=== PATIENT | female | born 1960 | race Caucasian/White ===

== ENCOUNTER 2023-11-20 09:15 | Emergency (ER) | payer OTHER, SELFPAY ==
[2023-11-20 09:18] VITALS: BP 173/91; BMI 23.5
--- NOTE | 2023-11-20 09:26 | ED.CVA ---
Addendum entered and electronically signed by Carlo Murillo DO 11/20/23 11:19:
The patient's blood sugar was slightly low at 68. She states she has had some symptomatic borderline hypoglycemic episodes in the past. She was given juice prior to discharge. Hypoglycemia may have been a contributing factor earlier.
Original Note:
History of Present Illness
General
Chief Complaint: CVA/TIA Symptoms
Time Seen by Provider: 11/20/23 09:26
Onset of Stroke Symptoms
Onset of symptoms known: Yes
Date of onset of symptoms: 11/20/23
Time of onset of symptoms: 07:30
Travel History
Have you had any contact with someone who has COVID-19?: No
Do you have any symptoms of coronavirus? Fever > 100 degrees, chills, cough, shortness of breath, sore throat, loss of taste or smell, muscle aches, or headache?: No
History of Present Illness
History of Present Illness:
HPI: At about 7:30 AM today after the patient finished swimming at your school, she had abrupt onset inability to recall where she was or what her plans were for the day. This lasted for about an hour. She has a history of von Willebrand's type I,
then diagnosed with essential thrombocytosis, then von Willebrand's type II. She does not take any medications. She states that she is at increased risk for bleeding as opposed to increased risk for clotting. She also states she has had an
abnormal white count recently as well.
EXAM:
GENERAL: Well appearing in no distress
HEENT: Moist oral mucosa
CARDIOVASCULAR: No murmurs, normal heart rate, regular rhythm, No chest wall tenderness
PULMONARY: No respiratory distress, breath sounds are clear and equal
ABDOMEN: Soft with no peritoneal signs, no tenderness
NEUROLOGIC: Excellent strength all extremities, no coordination deficits, GCS 15, NIHSS equals 0
PSYCHIATRIC: Appropriate mental status, normal insight and judgement
EXTREMITIES: Nontender, no edema, moves all extremities equally
SKIN: No rash, no lesions
TIME OF INITIAL ENCOUNTER: 9:30 AM
NUMBER AND COMPLEXITY OF PROBLEMS ADDRESSED AT THE ENCOUNTER
� Chronic conditions affecting care: History of von Willebrand's, thrombocytosis (essential thrombocythemia)
� Acute Exacerbation and/or Progression of Chronic Illness: This is an acute problem
� Differential Diagnosis includes: TIA, TGA, CVA, hyponatremia, intracranial hemorrhage
AMOUNT AND/OR COMPLEXITY OF DATA TO BE REVIEWED AND ANALYZED
� I performed an independent evaluation of and my interpretation is:
EKG: Sinus 61, no acute ST abnormality
CT: I personally viewed CT imaging of the brain and see no acute abnormality
X-rays:
Laboratory Studies: White count 22, of note leukocytosis to a lesser degree has been noted in 2017 in 2019, platelet count 1.1 million
Other:
� Review of other/old records: Platelet count since 2011 has been over 1 million; the patient had sigmoidoscopy by Dr. Wheeler in October 2022 that showed no concerning findings grossly but small diverticula noted.
� Clinical information was obtained by an independent historian: I spoke to the at bedside who confirms that she is at her baseline mental status
� Prescriptions/Medications Considered but not given:
� Further testing considered but not performed:
RISK OF COMPLICATIONS AND/OR MORBIDITY OR MORTALITY OF PATIENT MANAGEMENT
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
� Discussion with other providers: At 9:45 AM, I discussed case with Dr. Fournier who agrees with noncontrast CT imaging of the brain and recommends no further studies and no other medications; I also called down to [facility]
to discuss case with with Dr. Gillis. I spoke to Dr. Gillis�he said he will call in hydroxyurea to local pharmacy. I reviewed the CBC today and he states that these numbers are similar to prior numbers that she has had with him in the past.
� Escalation of care including admission/observation vs risk of discharge considered: The patient has history of von Willebrand's and essential thrombocythemia who had onset of memory loss 1 hour ago that is since resolved. CT
imaging to be obtained. The patient is in a sinus rhythm. CT imaging unremarkable. [facility] planning to add hydroxyurea. On reassessment at 10:50 AM, the patient has a neurologic examination. She now tells me that she does not
tolerate hydroxyurea in the past�she will contact Dr. Gillis for further recommendations and I also recommended that she follows up with neurology locally.
Past History
Past History
ED Past Medical History: Other (Von Willebrand's disease, and thrombocytosis)
ED Past Surgical History: None
Social History
Tobacco: Non-smoker
Alcohol: Occasional
Drug: None
Personal: Single
Living: with family
Employment: Employed
Family History
Family History: Other (Atrial fibrillation)
Phy Exam
Physical Exam
Physical Exam:
See HPI
Course
Orders/Labs/Results
Orders:
Orders
11/20/23 09:22
EKG [Electrocardiogram (*1)] Urgent
Reason for Study: TIA/Stroke
11/20/23 09:23
CT Head W/o Iv Contrast Urgent
Comment:
Reason For Exam: TIA symptoms
EKG- Treatment ONCE
11/20/23 09:40
CMP [Comprehensive Metabolic Panel] Urgent
Complete Blood Count/With Diff Urgent
Abnormal Lab Results
11/20/23
09:40
WBC 22.5 H 10^3/uL
(4.8-10.8)
MCHC 32.1 L g/dL
(33.0-37.0)
RDW 16.9 H %
(11.5-14.5)
Plt Count 1117 H 10^3/uL
(130-400)
Abs Immat Gran (auto) 1.0 H 10^3/uL
(0-0.05)
Absolute Neuts (auto) 19.1 H 10^3/uL
(1.4-6.5)
Absolute Monos (auto) 0.8 H 10^3/uL
(0.1-0.6)
Immature Gran % 4.5 H %
(0-0.5)
Neutrophils % 85.2 H %
(42.2-75.2)
Lymphocytes % 6.1 L %
(20.5-51.1)
Potassium 5.3 H mmol/L
(3.5-5.1)
Carbon Dioxide 31 H mmol/L
(22-30)
BUN 18 H mg/dl
(7-17)
Glucose 68 L mg/dl
(70-99)
Calcium 10.3 H mg/dl
(8.4-10.2)
11/20/23 09:40
11/20/23 09:40
Vital Signs
Initial and Last Documented VS:
Initial Vital Signs
Temp Pulse Resp BP Pulse Ox
98.5 F 88 16 173/91 99
11/20/23 09:18 11/20/23 09:18 11/20/23 09:18 11/20/23 09:18 11/20/23 09:18
Last Documented Vital Signs
Temp Pulse Resp BP Pulse Ox
98.5 F 67 16 154/96 97
11/20/23 09:18 11/20/23 09:45 11/20/23 09:45 11/20/23 09:28 11/20/23 09:45
*Critical Care Note
Total Time (30-74mins, 75-104mins- exclusive of procedures): Not Applicable
ED Attending Note
-
Portions of this chart may have been created with voice recognition software.� Occasional wrong word or��sound alike� substitutions may have occurred due to the inherent limitations of voice recognition software.
Discharge Plan
Departure
Patient Disposition: Home (Routine Discharge)
Date of Disposition: 11/20/23
Time of Disposition: 10:49
Patient with high blood pressure during this ER visit?: Yes
Discharge Problem:
Transient global amnesia
Instructions: Transient Ischemic Attack (DC), BLOOD PRESSURE
Prescriptions:
No Action
vitamin B complex 1 TAB tablet
1 tab PO DAILY
albuterol sulfate 1 PUFF HFA aerosol inhaler
1 puff inhalation R Q4HPRN PRN (Reason: sob)
Lactobac 2-Bifido 1-S. therm [VSL#3] 1 EACH capsule
1 cap PO DAILY
cholecalciferol (vitamin D3) 2,000 UNITS tablet
5,000 units PO DAILY
Magnesium Citrate Tablet
240 mg PO DAILY
Prebiotin Fiber Powder
1 sc PO DAILY
Referrals:
Aureliano Fournier MD [Active] - Follow up in 2-3 days
NONE,* [Active] -
Activity Restrictions/Additional Instructions:
Your symptoms could be related to a transient global amnesia event. I discussed with the local neurologist, Dr. Fournier, who had no further recommendations. I also discussed with Dr. Gillis at [facility]�he was going to call in a prescription
for hydroxyurea to your local pharmacy�I recommend that you call him for further discussion. I have also given you the contact information for a local neurologist for consideration of MRI of the brain as an outpatient.
Interventions
Interventions:
*Risk Screen - Suicide Last Done: 11/20/23 09:18
*General Assessment Last Done: 11/20/23 09:37
*Neglect/Abuse Screening Last Done: 11/20/23 09:18
ED- Fall Risk Assessment Last Done: 11/20/23 09:37
*ED COVID-19 Vaccine History Last Done: 11/20/23 09:18
ED- Pulmonary Assessment Last Done: 11/20/23 09:37
ED- Neurological Assessment Last Done: 11/20/23 09:37
ED- Cardiac Assessment Last Done: 11/20/23 09:37
Discharge Date and Time
Print Language: BOLIVIAN
[2023-11-20 09:28] VITALS: BP 154/96
[2023-11-20 09:53] LABS: % Basophils 0.3 % (0-2); % Eosinophils 0.2 % (0-6); % Immature Granulocytes 4.5 % (0-0.5); % Lymphocytes 6.1 % (20.5-51.1); % Monocytes 3.7 % (1.7-9.3); % Neutrophils 85.2 % (42.2-75.2); Absolute Basophils 0.1 10^3/uL (0-0.2); Absolute Eosinophils 0.1 10^3/uL (0-0.7); Absolute Lymphocytes 1.4 10^3/uL (1.2-3.4); Absolute Monocytes 0.8 10^3/uL (0.1-0.6); Absolute Neutrophils 19.1 10^3/uL (1.4-6.5); Hematocrit 42.4 % (37.0-47.0); Hemoglobin 13.6 g/dL (12.0-16.0); Mean Corp Hgb Conc. 32.1 g/dL (33.0-37.0); Mean Corpuscular Hgb 30.8 pg (27.0-31.0); Mean Corpuscular Volume 96.1 fL (81.0-99.0); Mean Platelet Volume 9.2 fL (7.4-10.4); Nucleated Red Blood Cells % 0.3 %; Platelet Count 1117 10^3/uL (130-400); Red Blood Cell Count 4.41 10^6/uL (4.20-5.40); Red Cell Dist. Width 16.9 % (11.5-14.5); White Blood Cell Count 22.5 10^3/uL (4.8-10.8)
[2023-11-20 10:13] LABS: ALT (SGPT) 21 U/L (0-35); AST (SGOT) 32 U/L (14-36); Albumin 4.9 g/dl (3.5-5.0); Alkaline Phosphatase 45 U/L (38-126); Blood Urea Nitrogen 18 mg/dl (7-17); Calcium 10.3 mg/dl (8.4-10.2); Carbon Dioxide 31 mmol/L (22-30); Chloride 103 mmol/L (98-107); Estimated Creatinine Clearance 63 ml/min; Glucose 68 mg/dl (70-99); Potassium 5.3 mmol/L (3.5-5.1); Sodium 140 mmol/L (135-145); Total Bilirubin 0.6 mg/dl (0.2-1.3); Total Protein 7.5 g/dl (6.3-8.2); eGFR > 60.00
[2023-11-20 11:00] VITALS: BP 142/68
[2023-11-20 11:20] VITALS: BP 142/68
--- NOTE | 2023-11-20 11:28 | EDRN ---
Reviewed discharge instructions with patient. Verbalized understanding. Ambulated with steady gait to the lobby.
== END 2023-11-20 11:20 | disposition home or self-care (01) ==
LOC: EMR 09:15
PROVIDERS: Emergency Medicine; EMERGENCY PHYSICIAN Emergency Medicine; FAMILY PHYSICIAN Nurse Practitioner Family
DX: G45.4 Transient global amnesia (principal); D68.01 Von Willebrand disease, type 1; D69.3 Immune thrombocytopenic purpura
CPT/HCPCS: 99284; 70450; 80053; 85025; 93005

== ENCOUNTER → 2023-12-13 12:51 | Outpatient (REF) | payer OTHER, SELFPAY | LOC: MRI 3T 12:51 | PROVIDERS: ATTENDING PHYSICIAN Specialist; FAMILY PHYSICIAN Nurse Practitioner Family | DX: G45.9 Transient cerebral ischemic attack, unspecified (principal) | CPT/HCPCS: 70551 ==

== ENCOUNTER → 2024-01-15 08:57 | Outpatient (REF) | payer OTHER, SELFPAY | LOC: HWRAD 08:57 | PROVIDERS: ATTENDING PHYSICIAN Specialist; FAMILY PHYSICIAN Nurse Practitioner Family | DX: G45.9 Transient cerebral ischemic attack, unspecified (principal) | CPT/HCPCS: 93880 ==

== ENCOUNTER → 2024-04-05 09:10 | Outpatient (REF) | payer OTHER, SELFPAY | LOC: RCS 09:10 | PROVIDERS: ATTENDING PHYSICIAN Internal Medicine Cardiovascular Disease; FAMILY PHYSICIAN Nurse Practitioner Family | DX: R00.2 Palpitations (principal); I34.0 Nonrheumatic mitral (valve) insufficiency | CPT/HCPCS: 93306 ==

== ENCOUNTER 2024-10-20 06:23 | Day surgery (SDC) | payer OTHER, SELFPAY | END 2024-10-20 08:23 | disposition home or self-care (01) | LOC: GI 06:23 | PROVIDERS: ATTENDING PHYSICIAN Internal Medicine; FAMILY PHYSICIAN Nurse Practitioner Family | DX: K64.4 Residual hemorrhoidal skin tags (principal); R15.9 Full incontinence of feces; Z87.19 Personal history of other diseases of the digestive system; Z98.890 Other specified postprocedural states | CPT/HCPCS: 45331; 88305 ==

== ENCOUNTER 2025-01-03 06:24 | Day surgery (SDC) | payer OTHER, SELFPAY | END 2025-01-03 13:18 | disposition home or self-care (01) | LOC: GI 06:24 | PROVIDERS: ATTENDING PHYSICIAN Internal Medicine; FAMILY PHYSICIAN Nurse Practitioner Family | DX: R12 Heartburn (principal); R63.0 Anorexia; K44.9 Diaphragmatic hernia without obstruction or gangrene; K20.90 Esophagitis, unspecified without bleeding | CPT/HCPCS: 43239; 88305 ==

== ENCOUNTER → 2025-01-05 07:44 | Outpatient (REF) | payer OTHER, SELFPAY ==
[2025-01-05 08:54] LABS: Hematocrit 38.9 % (37.0-47.0); Hemoglobin 12.7 g/dL (12.0-16.0); Mean Corp Hgb Conc. 32.6 g/dL (33.0-37.0); Mean Corpuscular Volume 94.9 fL (81.0-99.0); Mean Platelet Volume 9.2 fL (7.4-10.4); Platelet Count 823 10^3/uL (130-400); Red Cell Dist. Width 16.3 % (11.5-14.5); White Blood Cell Count 14.6 10^3/uL (4.8-10.8)
[2025-01-05 09:54] LABS: ALT (SGPT) 16 U/L (0-35); AST (SGOT) 19 U/L (14-36); Albumin 4.5 g/dl (3.5-5.0); Alkaline Phosphatase 38 U/L (38-126); Blood Urea Nitrogen 15 mg/dl (7-17); Calcium 9.3 mg/dl (8.4-10.2); Carbon Dioxide 28 mmol/L (22-30); Chloride 106 mmol/L (98-107); Glucose 81 mg/dl (70-99); Potassium 5.2 mmol/L (3.5-5.1); Sodium 141 mmol/L (135-145); Total Bilirubin 0.6 mg/dl (0.2-1.3); Total Protein 6.9 g/dl (6.3-8.2); eGFR > 60.00
[2025-01-05 10:08] LABS: % Neutrophils 80.1 % (42.2-75.2)
[2025-01-05 10:12] LABS: % Basophils 0.3 % (0-2); % Eosinophils 0.3 % (0-6); % Immature Granulocytes 5.9 % (0-0.5); % Lymphocytes 7.8 % (20.5-51.1); % Monocytes 5.6 % (1.7-9.3); Absolute Basophils 0.1 10^3/uL (0-0.2); Absolute Immature Granulocytes 0.9 10^3/uL (0-0.05); Absolute Lymphocytes 1.1 10^3/uL (1.2-3.4); Absolute Monocytes 0.8 10^3/uL (0.1-0.6); Absolute Neutrophils 11.7 10^3/uL (1.4-6.5); Nucleated Red Blood Cells % 0.2 %
== END ==
LOC: REG 07:44
PROVIDERS: ATTENDING PHYSICIAN Internal Medicine; FAMILY PHYSICIAN Nurse Practitioner Family
DX: R16.1 Splenomegaly, not elsewhere classified (principal); R63.0 Anorexia; R10.13 Epigastric pain; R10.2 Pelvic and perineal pain
CPT/HCPCS: 36415; 80053; 85025

== ENCOUNTER → 2025-01-13 08:44 | Outpatient (REF) | payer OTHER, SELFPAY | LOC: RAD 08:44 | PROVIDERS: ATTENDING PHYSICIAN Internal Medicine; FAMILY PHYSICIAN Nurse Practitioner Family | DX: R16.1 Splenomegaly, not elsewhere classified (principal); R63.0 Anorexia; R10.13 Epigastric pain; R10.2 Pelvic and perineal pain | CPT/HCPCS: 74177; Q9967 ==

== ENCOUNTER 2025-02-19 21:32 | Emergency (ER) | payer OTHER, SELFPAY ==
[2025-02-19 21:41] VITALS: BP 131/81
--- NOTE | 2025-02-19 21:54 | ED.GENMED ---
History of Present Illness
General
Chief Complaint: Skin Surface Trauma
Source: patient
Exam Limitations: none
Time Seen by Provider: 02/19/25 21:51
Nursing documentation reviewed up to this point in time: agreed with
History of Present Illness
History of Present Illness:
65 y/o female with a pmh of essential thrombocytopenia, von willebrand type 1a, htn, who presents to the emergency department today with concerns of a right knee laceration. Patient reports that she was completing a trail run this afternoon when she
tripped and fell forward, scrapping her knee on the trail. She saw EMS on site at the event who cleaned the wound and applied a dressing. The wound would not stop bleeding. 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 Patient carried on with a portion of the race when she started to bleed again and started to bleed through the powder. She denies any other injuries. She did not hit her head or loose
consciousness.
Past History
Past History
ED Past Medical History: Other (Von Willebrand's disease, and thrombocytosis)
ED Past Surgical History: None
Social History
Tobacco: Non-smoker
Alcohol: Occasional
Drug: None
Personal: Single
Living: with family
Employment: Employed
Family History
Family History: Other (Atrial fibrillation)
Review of Systems
Review of Systems
All Other Systems: ROS reviewed and negative except as documented in HPI and ROS
Phy Exam
General Physical Exam
General Presentation: well appearing and no apparent distress
General age: appears stated age
General Skin: warm, dry and other (3 cm laceration)
General Habitus: normal
General Mental: alert
General Hydration: appears well hydrated
ENT Exam
ENT Exam: EOMI
Cardiovascular Exam
Cardiovascular Exam: regular rate/rhythm
Pulmonary Exam
Pulmonary Exam: no respiratory distress
Neurological Exam
Neurological Exam: CN II-XII intact and no sensory deficits
Musculoskeletal Exam
Musculoskeletal Exam: full ROM and no edema
Skin Exam
Skin Exam: normal color and laceration
Psychiatric Exam
Psychiatric Exam: normal mood/affect
Course
Orders/Labs/Results
Orders:
Orders
02/19/25 22:39
Tetanus/Diphth/Acelpertussis [Adacel] 0.5 ml IM .ONCE ONE
Vital Signs
Initial and Last Documented VS:
Initial Vital Signs
Temp Pulse Resp BP Pulse Ox
98.4 F 76 20 131/81 98
02/19/25 21:41 02/19/25 21:41 02/19/25 21:41 02/19/25 21:41 02/19/25 21:41
Last Documented Vital Signs
Temp Pulse Resp BP Pulse Ox
98.4 F 76 20 131/81 98
02/19/25 21:41 02/19/25 21:41 02/19/25 21:41 02/19/25 21:41 02/20/25 05:12
Procedures
Laceration Closure
Right Knee:
Status of Wound: clean
Size of Wound in cm: 3
Anesthesia: 1% Lidocaine with epi
Wound exploration: explored to base- no FB and foreign body removed (removed clotting powder)
Skin Closure Material: 4-0 prolene
Number of sutures: 5
MDM/Problems Addressed
Differential Diagnosis Includes:
ddx include laceration, abrasion, neurovascular injury, contusion
MDM/Problems Addressed:
65 y/o female with a pmh of essential thrombocytopenia, von willebrand type 1a, htn, who presents to the emergency department today with concerns of a right knee laceration. She originally was not going to seek care as her bleeding was well
controlled with clotting powder. On my exam, patient is well appearing, in no acute distress. She has full ROM of her bilateral lower extremities normal gait sensation intact. There is a moderate amount of sand like material in the wound reflective
of the clotting powder. Wound requires sutures. Reviewed case with ED attending. I extensively irrigated the wound to remove as much clotting powder as possible and placed sutures. Considering nature of wound will start on prophylactic abx.
Discussed limitijng activties and ROM of knee as it is neer joint line. Patient stable for discharge
*Pulse Oximetry
SaO2: 98
Oxygen Mode of Delivery: Room air
Patient hypoxic: no
*Critical Care Note
Total Time (30-74mins, 75-104mins- exclusive of procedures): Not Applicable
ED Attending Note
-
Portions of this chart may have been created with voice recognition software.� Occasional wrong word or��sound alike� substitutions may have occurred due to the inherent limitations of voice recognition software.
Discharge Plan
Departure
Patient Disposition: Home (Routine Discharge)
Date of Disposition: 02/19/25
Time of Disposition: 22:59
Patient with high blood pressure during this ER visit?: Yes
Condition: Good
Discharge Problem:
Laceration of knee
Instructions: Wound Care (DC), Laceration Repair With Stitches (DC), BLOOD PRESSURE
Prescriptions:
New
cephalexin 500 mg capsule
500 mg PO TID 5 Days Qty: 15 0RF
No Action
vitamin B complex 1 TAB tablet
1 tab PO DAILY
albuterol sulfate 1 PUFF HFA aerosol inhaler
1 puff inhalation R Q4HPRN PRN (Reason: sob)
Lactobac 2-Bifido 1-S. therm [VSL#3] 1 EACH capsule
1 cap PO DAILY
cholecalciferol (vitamin D3) 2,000 UNITS tablet
5,000 units PO DAILY
Magnesium Citrate Tablet
240 mg PO DAILY
Prebiotin Fiber Powder
1 sc PO DAILY
Referrals:
Germaine Salas CRNP [Family Provider, Family Practice]
Activity Restrictions/Additional Instructions:
Please have your stitches removed in 7 to 10 days.
Please keep the wound dry for 24 hours. After 24 hours, you can change dressing with nonadherent pad. You can clean the wound with warm water and mild soap. Please do not apply hydrogen peroxide or alcohol over the wound. Please refrain from
running.
Keflex has been sent to your pharmacy. Please take 1 tablet 3 times daily for 5 days.
Please return to emergency department should you develop increasing pain, swelling, purulent drainage from the wound, surrounding redness, fevers or chills, inability ambulate, or any other signs or symptoms worrisome to you.
Interventions
Interventions:
*Risk Screen - Suicide Last Done: 02/19/25 21:41
*General Assessment Last Done: 02/19/25 21:41
*Neglect/Abuse Screening Last Done: 02/19/25 21:41
*ED- Fall Risk Assessment Last Done: 02/19/25 21:41
*ED COVID-19 Vaccine History Last Done: 02/19/25 21:41
*Nursing Disposition Last Done: 02/19/25 23:16
ED-Skin Assessment Last Done: 02/19/25 23:16
Discharge Date and Time
Discharge Date/Time: 02/19/25 23:18
Print Language: UGANDAN
[2025-02-19] MEDS: ADACEL 0.5 ML IM (23:02)
== END 2025-02-19 23:18 | disposition home or self-care (01) ==
LOC: EMR 21:32
PROVIDERS: EMERGENCY PHYSICIAN Emergency Medicine; FAMILY PHYSICIAN Nurse Practitioner Family
DX: S81.011A Laceration without foreign body, right knee, initial encounter (principal); W01.0XXA Fall on same level from slipping, tripping and stumbling without subsequent striking against object, initial encounter; D68.01 Von Willebrand disease, type 1; I10 Essential (primary) hypertension; D69.3 Immune thrombocytopenic purpura; Z23 Encounter for immunization
CPT/HCPCS: 90471; 12002; 99282; 90715

== ENCOUNTER 2025-02-22 08:50 | Inpatient (IN) | payer OTHER, SELFPAY ==
[2025-02-21 23:35] VITALS: BP 171/87
[2025-02-22] VITALS (7 sets, daily range): BP systolic 117–143; BP diastolic 58–89; BMI 26.0
[2025-02-22 00:47] LABS: ALT (SGPT) 15 U/L (0-35); AST (SGOT) 20 U/L (14-36); Albumin 4.4 g/dl (3.5-5.0); Alkaline Phosphatase 56 U/L (38-126); Blood Urea Nitrogen 13 mg/dl (7-17); Calcium 9.2 mg/dl (8.4-10.2); Carbon Dioxide 28 mmol/L (22-30); Chloride 103 mmol/L (98-107); Glucose 108 mg/dl (70-99); Potassium 4.4 mmol/L (3.5-5.1); Sodium 138 mmol/L (135-145); Total Protein 6.9 g/dl (6.3-8.2); eGFR > 60.00
[2025-02-22 00:58] LABS: Hematocrit 38.2 % (37.0-47.0); Hemoglobin 12.5 g/dL (12.0-16.0); Mean Corp Hgb Conc. 32.7 g/dL (33.0-37.0); Mean Corpuscular Volume 93.2 fL (81.0-99.0); Platelet Count 891 10^3/uL (130-400); Red Cell Dist. Width 16.6 % (11.5-14.5)
[2025-02-22] MEDS: TYLENOL 650 MG PO ×4 (02:04→20:32)
[2025-02-22] MEDS: ZOFRAN ODT (ORALLY DISINTEGRATING) 4 MG PO (02:05)
[2025-02-22 02:25] LABS: Nucleated Red Blood Cells % 0.1 %
--- NOTE | 2025-02-22 04:34 | ED.GENMED ---
History of Present Illness
General
Chief Complaint: Skin Problem
Source: patient, spouse and previous hospital records (ED visit from 3 days ago, traumatic wound right anterior knee, suture repair, placed on Keflex.)
Exam Limitations: none
Time Seen by Provider: 02/22/25 04:02
Nursing documentation reviewed up to this point in time: agreed with
History of Present Illness
History of Present Illness:
The patient is a 65-year-old female who presented initially three days ago with an injury to her right anterior knee. Wound was thoroughly irrigated, suture repaired and placed on Keflex. After the initial visit, the patient traveled to a [facility] the following day, during which she began experiencing fever despite administration of acetaminophen. She also noted redness and swelling right anterior knee leading to a subsequent visit to the emergency department in the [place]
area.
At the emergency department, laboratory work revealed leukocytosis with a white blood cell count of 22,000/�L. Imaging, including an X-ray of the knee which was reported unremarkable and an ultrasound, verified superficial cellulitis and no further
complications. The patient was switched from cephalexin to doxycycline and Augmentin. Despite new antibiotics, the patient continues to experience fever. She also notes increased redness now extending to the mid thigh and continues with
intermittent fevers.
The patient cannot take ibuprofen but has been consistently using acetaminophen every five hours. She mentions experiencing discomfort and pain in her hip, although the source of pain postures as unclear. The wound showed minimal oozing, and she
used crutches to offload the leg. Initial treatment included the application of clot powder, which may have aggravated wound conditions.
Past History
Past History
ED Past Medical History: Other (Von Willebrand's disease, and thrombocytosis)
ED Past Surgical History: None
Social History
Tobacco: Non-smoker
Alcohol: Occasional
Drug: None
Personal: Single
Living: with family
Employment: Employed
Family History
Family History: Other (Atrial fibrillation)
Phy Exam
Physical Exam
Physical Exam:
GENERAL: Alert , in no apparent distress. Mild low-grade fever noted initially. Has resolved after dose of Tylenol.
EYE: anicteric
NECK: Supple, nontender, no meningismus, no significant adenopathy.
ENT: posterior pharynx is clear, oral mucosa is moist. TM clear b/l, nares patent.
CARDIAC: Regular rate and rhythm. no murmur.
LUNGS: Clear breath sounds bilaterally, no acute respiratory distress, no wheezes/rales/rhonchi
ABDOMEN: Soft, nondistended, without focal tenderness, no r/g, no cvat. normoactive BS.
NEUROLOGICAL: Alert and oriented x3, no focal neuro deficits.
SKIN: Warm and dry, normal color. Right anterior knee has a horizontal sutured laceration with moderate local erythema mild bogginess anterior knee with mild local tenderness to palpation. No drainage. Erythema extends to the anterior medial
thigh approximately mid aspect as well as minimally to the anterior proximal lower leg region. There is minimal right groin adenopathy. No evidence of lymphangitis. No palpable joint effusion of the right knee. Mildly restricted flexion of the
right knee without significant pain with range of motion.
MUSCULOSKELETAL: No C/C/E. peripheral pulses are full and equal b/l.
PSYCH: Normal and appropriate interaction.
Sepsis
Sepsis Screening
Sepsis Assessment: Sepsis Ruled Out
Sepsis Screen
Sepsis Screen: Sepsis Ruled Out
Date: 02/24/25
Time: 05:47
Course
Orders/Labs/Results
Orders:
Orders
02/21/25 23:41
Complete Blood Count/With Diff Urgent
Comprehensive Metabolic Panel Urgent
Lactic Acid Urgent
Blood Culture Urgent
REAGAN Source: Blood/Venous
Specimen Description:
02/22/25 02:01
Acetaminophen [Tylenol] 650 mg .ROUTE .STK-MED ONE
Ondansetron Orally Disint [Zofran Odt (Orally Disintegrating)] 4 mg .ROUTE .STK-MED ONE
02/22/25 02:03
Acetaminophen [Tylenol] 650 mg PO NOW STA
02/22/25 02:05
Ondansetron Orally Disint [Zofran Odt (Orally Disintegrating)] 4 mg PO NOW STA
02/22/25 04:31
US Non Vasc LOWER Ext RT Urgent
Reason For Exam: R ant knee erythema, swelling, fever
02/22/25 Breakfast
Regular
At Your Request: Full Participation
02/22/25 06:09
Vancomycin [Vancocin] 1,500 mg 0.9% Sodium Chloride 500 ml [Nss] 500 ml IV NOW
02/22/25 07:09
Admit/Transfer Patient As Directed
Co-Sign Provider:
Level of Care: Inpatient admission
Assign to:: Telemetry
Physician / Group: Shane
Diagnosis: R Knee Cellulitis / Bursitis
Reason for Telemetry: Arrhythmia
Date to Stop Telemetry: 02/25/25
Time to Stop Telemetry: 11:00
Reason for Hospitalization: R Knee Cellulitis / Bursitis
Expected length of stay greater than two midnights?: Yes
ELOS- Estimated Length of Stay in days: 2
I certify the patient meets the requirements for IP care: Yes
PRN Pain Medication Management As Directed
May give lesser potent ordered pain med per pt: Yes
preference::
Protocol:: Medication orders for pain may be administered in a
manner that supports deferring to patient preference
when the pt is:
- Requesting an ordered lesser potent pain medication.
Least to most potent pain medications are defined
as: acetaminophen < NSAID < tramadol < opioids
(morphine, oxycodone, hydromorphone).
- Requesting a lesser dose of the same medication IF
ORDERED.
- Requesting a less intrusive route of administration
if both routes are prescribed by the provider (PO <
IV).
02/22/25 07:10
Code Status As Directed
Resuscitation Status: Full Code
02/22/25 07:42
Acetaminophen [Tylenol] 650 mg PO Q4HPRN PRN
HYDROmorphone [Dilaudid] 0.5 mg IV Q4HPRN PRN
02/22/25 07:42
ORTHOPEDIC CONSULT Routine
Consulting Provider: Gerard Yin
Was physician already notified: Yes
Reason for consult: R Knee Bursitis / Cellulitis
Activity As Directed
Activity Level: Ambulate
With Assistance
I/O [Intake/ Output] As Directed
Frequency: Per unit guidelines
Pneumatic Compression Sleeves As Directed
Type: Knee high
Vital Signs As Directed
Frequency: Per unit guidelines
Weight As Directed
Frequency: Daily
DX Deep Vein Thrombosis Video Routine
02/22/25 08:00
Flecainide [Tambocor] 50 mg PO DAILY
Losartan [Cozaar] 75 mg PO DAILY
02/23/25 08:47
Basic Metabolic Panel IN AM
Complete Blood Count/No Diff IN AM
02/25/25 11:00
DC Protocol for Telemetry ONCE
Abnormal Lab Results
02/22/25
00:06
WBC 22.5 H 10^3/uL
(4.8-10.8)
RBC 4.10 L 10^6/uL
(4.20-5.40)
MCHC 32.7 L g/dL
(33.0-37.0)
RDW 16.6 H %
(11.5-14.5)
Plt Count 891 H 10^3/uL
(130-400)
Abs Immat Gran (auto) 0.3 H 10^3/uL
(0-0.05)
Absolute Neuts (auto) 20.1 H 10^3/uL
(1.4-6.5)
Absolute Monos (auto) 0.9 H 10^3/uL
(0.1-0.6)
Immature Gran % 1.4 H %
(0-0.5)
Neutrophils % 89.3 H %
(42.2-75.2)
Lymphocytes % 5.1 L %
(20.5-51.1)
Glucose 108 H mg/dl
(70-99)
02/22/25 00:06
02/22/25 00:06
Vital Signs
Initial and Last Documented VS:
Initial Vital Signs
Temp Pulse Resp BP Pulse Ox
99.1 F 80 20 171/87 99
02/21/25 23:35 02/21/25 23:35 02/21/25 23:35 02/21/25 23:35 02/21/25 23:35
Last Documented Vital Signs
Temp Pulse Resp BP Pulse Ox
98.6 F 69 16 128/75 97
02/24/25 03:00 02/24/25 03:00 02/24/25 03:00 02/24/25 03:00 02/24/25 03:00
MDM/Problems Addressed
Differential Diagnosis Includes:
The Differential Diagnosis includes, in no particular order and is not limited to:
1. Superficial cellulitis
2. Deep vein thrombosis
3. Septic arthritis
4. Osteomyelitis
5. Drug reaction
6. Hypersensitivity vasculitis
7. Necrotizing fasciitis
8. Viral infection
9. Thrombophlebitis
10. Bursitis
PLAN
Progressive cellulitis despite oral antibiotics.
1. Initiate intravenous antibiotic therapy.
2. Repeat ultrasound to assess for any underlying abscess or complications.
3. Consider removing stitches if warranted by ultrasound findings.
4. Monitor vital signs and reassess the need for orthopedic or wound consultations.
*Radiology
Radiology exam reviewed: radiology read reviewed
*Pulse Oximetry
SaO2: 97
Oxygen Mode of Delivery: Room air
Patient hypoxic: no
*Critical Care Note
Total Time (30-74mins, 75-104mins- exclusive of procedures): Not Applicable
Update Note
Update Note:
Labs reveal elevated white blood cell count of 22.5. Patient reports similar white blood cell count elevation at [place] ED. Markedly elevated platelets 891, similar to previous. Patient has known thrombocytosis.
Lactic acid is normal.
3 sutures removed from wound right anterior knee.
No drainage nor dehiscence noted. Wound remains well-approximated.
Awaiting ultrasound result.
IV vancomycin ordered.
Will admit to hospitalist service.
ED Attending Note
-
Portions of this chart may have been created with voice recognition software.� Occasional wrong word or��sound alike� substitutions may have occurred due to the inherent limitations of voice recognition software.
Discharge Plan
Departure
Patient Disposition: Admit
Date of Disposition: 02/22/25
Time of Disposition: 06:01
Admit to doctor: Binh
Presentation/result/management discussed w/ accepting MD/DO: Hospitalist
Condition: Fair
Discharge Problem:
Cellulitis of knee, right
Interventions
Interventions:
*Risk Screen - Suicide Last Done: 02/21/25 23:35
*General Assessment Last Done: 02/22/25 04:43
*Neglect/Abuse Screening Last Done: 02/22/25 04:43
*ED- Fall Risk Assessment Last Done: 02/22/25 04:43
*ED COVID-19 Vaccine History Last Done: 02/22/25 04:43
*Nursing Disposition Last Done: 02/22/25 15:05
ED-Skin Assessment Last Done: 02/22/25 04:43
Discharge Date and Time
Discharge Date/Time: 02/22/25 15:06
[2025-02-22] MEDS: VANCOCIN 530 MG IV (06:26)
--- NOTE | 2025-02-22 07:16 | HPS.HSE ---
Family Physician
-
Family Physician: SAMSON Dwyer
Chief Complaint
-
R Knee Pain, Swelling, Redness
History of Present Illness
Patient is a 65y F with PMH significant for von Willebrands Disease, essential thrombocytosis, atrial tachycardia and hypertension who presents to ED complaining of R knee pain, swelling and redness. Patient was running a race on 02/19 when she
tripped and fell - suffering a laceration to the R knee which she describes as a 'flap'. She applied some coagulant powder to the area with good result and continued the race. Following the race she presented to the ED here for evaluation. The
wound was cleaned and closed with 5 sutures. Patient was discharged to home at that time on prophylactic cephalexin.
24 hours later, patient began to have intermittent fevers and noted significant increase in pain and redness of the knee. She had pain with walking / weight bearing.
She was seen at an ED in [facility] on Friday and had x-rays and US which were reportedly normal. She received a dose of IV abx and was discharged on Augmentin / Doxycycline instead of the cephalexin.
Patient presented at a conference on Friday and then drove back to [place] and directly to the ED thereafter. She notes severe pain with standing / weight bearing. Intermittent fevers / sweats.
No N/V. No numbness / weakness in the legs.
Patient denies any discharge from the wound.
Medical History
Past Medical History
Past Medical History: Reports Other
Additional Past Medical History:
von Willebrands Disease
Essential Thrombocytosis
Asthma
GERD / Hiatal Hernia
Atrial Tachycardia
Past Surgical History: Reports Other
Additional Past Surgical History:
[facility] Biopsy
Hemorrhoidectomy
Social History
Tobacco: Non-smoker
Alcohol: Occasional
Drug: None
Family History
Family History: Not pertinent
Allergies / Home Medications
Allergies reflects when Allergies were last updated in [employer].
Home Medications with original date entered in [facility]
Allergy/Medication List:
Allergies
Allergy/AdvReac Type Severity Reaction Status Date / Time
Sulfa (Sulfonamide Allergy Unknown Verified 02/21/25 23:34
Antibiotics)
Home Medications
Lactobac no.2-Bifidobac no.1-S. thermo 112.5 billion cell capsule (VSL#3) 1 cap PO DAILY 10/21/16
Magnesium Citrate 240 mg PO DAILY 10/21/16
Prebiotin Fiber 1 sc PO DAILY 10/21/16
albuterol sulfate 90 mcg/actuation aerosol inhaler 1 puff inhalation R Q4HPRN PRN sob 10/21/16
cholecalciferol (vitamin D3) 50 mcg (2,000 unit) tablet 5,000 units PO DAILY 10/21/16
vitamin B complex 1 tab PO DAILY 10/21/16
flecainide 50 mg tablet 50 mg PO DAILY 02/22/25
losartan 50 mg tablet 75 mg PO DAILY 02/22/25
Review of Systems
-
History Source: Patient
A 12 point ROS was completed and negative except as noted: Yes
Constitutional: Reports Fever, Fatigue and Chills
EENT: Denies Sore Throat
Respiratory: Denies Cough or Trouble Breathing
Cardiac: Denies Chest Pain or Palpitations
Abdomen/GI: Denies Abdominal Pain, Nausea, Vomiting or Diarrhea
: Denies Dysuria
Musculoskeletal: Reports Joint Pain, Joint Swelling and Edema
Skin: Reports Other (Erythema R knee)
Neurological: Denies Dizzy or Headache
Physical Exam
Vital Signs
Vital Signs
Temp Pulse Resp BP Pulse Ox
99.9 F 73 18 131/80 97
02/22/25 01:57 02/22/25 04:50 02/22/25 04:50 02/22/25 04:50 02/22/25 04:50
Physical Exam
General: Other (65y F in mild distress due to knee pain.)
HEENT: Moist mucous membranes and PERRLA
Respiratory: Clear; No Wheezes, Rales or Rhonchi
Cardiac: S1/S2 and Regular Rhythm
GI: Soft and Non Tender
Musculoskeletal: Other (R knee with surrounding edema / induration and erythema extending into lateral thigh and lower leg. Horiztonal suture line with small amount of purulent appearing discharge from medial aspect. Boggy / fluctuance around
laceration.)
Neuro: AO x 3
Laboratory Results
-
02/22/25 00:06
02/22/25 00:06
Laboratory Results
Lactic Acid 0.8 mmol/L (0.7-2.0) 02/22/25 00:06
Total Bilirubin 0.9 mg/dl (0.2-1.3) 02/22/25 00:06
AST 20 U/L (14-36) 02/22/25 00:06
ALT 15 U/L (0-35) 02/22/25 00:06
Alkaline Phosphatase 56 U/L (38-126) 02/22/25 00:06
Impression/Plan
-
A/P: Patient is a 65y F with PMH significant for vWD, ET and hypertension who presents to ED complaining of pain, redness and swelling of the R knee 3 days s/p laceration and repair.
Right Knee Cellulitis / Abscess
Questionable Septic Bursitis v Abscess
- Admit for further evaluation and treatment.
- Some suture material removed by ED staff - scant purulent drainage from medial aspect of laceration.
- Significant surrounding edema / erythema and tenderness.
- ? underlying collection / abscess v septic bursitis.
- US done and report pending re: collection.
- X-rays at [facility] reportedly unremarkable. Consider repeat imaging if needed.
- Ortho evaluation for additional recommendations / possible local drainage or aspiration.
- Culture data from any aspirate or I&D would be beneficial.
- Continue IV Vanco for now pending culture data.
- Supportive care / pain control.
- Follow fever curve and monitor for clinical improvement.
Benign Hypertension
- Stable. Continue losartan.
Atrial Tachycardia.
- Stable. Maintained on flecainide.
vWD
Essential Thrombocytosis
- Stable. Platelet count at baseline.
- WBC typically around 14k per patient - elevated today (22) likely due to acute infection.
- Monitor for any abnormal bleeding, etc.
DVT Prophylaxis: SCDs
Code Status: Full
--- NOTE | 2025-02-22 09:42 | W.PN.HOSP.TC ---
Today's Communication/Plan
-
Continue antibiotics pending orthopedic evaluation
Assessment / Plan
Assessment / Plan
Impression
Patient is a 65y F with PMH significant for vWD, ET and hypertension who presents to ED complaining of pain, redness and swelling of the R knee 3 days s/p laceration and repair.
Right knee area cellulitis with concern for septic bursitis/abscess
Conditions prior to admission:
Essential hypertension
Atrial tachycardia.
Von Willebrand disease type II.
Essential thrombocytosis.
Plan:
Right knee cellulitis with concern for septic bursitis/abscess.
Exam with significant erythema and induration around the knee area extending approximately and distally. Sutured wound with expressed purulent discharge.
Patient reports fever and chills prior to admission while on oral antibiotics
WBC 22.5k
Ultrasound: There is a 4.6 x 1.4 x 4.2 cm mildly heterogeneous fluid collection in the subcutaneous soft tissues which may represent hematoma, possible abscess or a combination.
X-rays at [facility] reportedly unremarkable.
Wound cultures pending
Blood cultures pending
Orthopedic consult with consideration of wound washout
Initiated on vancomycin
Essential hypertension
Continue losartan
Atrial tachycardia
Telemetry monitoring
Continue preadmission flecainide
Von Willebrand disease type II.
Essential thrombocytosis.
Patient reports no major bleeding with endoscopic procedures involving biopsy such as endoscopy and colonoscopy
Noted with platelet count of 891.
Will ask hematology for assistance. Consider pretreatment with DDAVP or TXA if required. Less likely will require von Willebrand's factor given expected minor procedure.
DVT prophylaxis: SCD
CODE STATUS: Full code
Anticipated Discharge: > 48 hours
Subjective/Interval History
-
Date of Service: February 22, 2025
Objective Data
-
Labs:
Laboratory Results
02/22/25
00:06
WBC 22.5 H
Hgb 12.5
Hct 38.2
Plt Count 891 H
Sodium 138
Potassium 4.4
Chloride 103
Carbon Dioxide 28
BUN 13
Creatinine 0.8
Glucose 108 H
Calcium 9.2
Total Bilirubin 0.9
AST 20
ALT 15
Alkaline Phosphatase 56
Vital Signs:
Vital Signs
Temp Pulse Resp BP Pulse Ox
98.6 F 79 18 143/76 97
02/22/25 08:00 02/22/25 08:00 02/22/25 08:00 02/22/25 08:00 02/22/25 08:00
Physical Exam
-
General: Well Developed and No Apparent Distress
HEENT: Normocephalic, Atraumatic and Moist Mucous Membranes
Respiratory: Clear to Auscultation
Cardiac: Regular Rhythm and S1/S2; Negative Murmur, Rub or Gallop
GI: Soft, Nontender, Nondistended and Normal Bowel Sounds; Negative Organomegaly
Rectal: Deferred by Provider
Musculoskeletal: No Clubbing, No Cyanosis, No Edema and Other (Right knee with sutured wound, purulent content expressed. Erythema and induration spreading proximally and distally. Decreased range of motion's.)
Skin: Negative Rash
Neuro: Nonfocal/Grossly Intact
--- NOTE | 2025-02-22 11:19 | CON.ORTHO ---
Consultation
-
Date/Time Consultation Performed: 02/22/2025 1110 AM
Consultation - Orthopedics
History
65-year-old female past medical history significant for von Willebrand's disease atrial tachycardia presented to emergency department complaints of right knee pain and swelling and redness. Ultrasound was performed that showed soft tissue
collection. She was admitted to the hospitalist service. Orthopedics was consulted for further evaluation and treatment. Patient reports that she was running a trail race on 02/19 when she tripped and fell causing a laceration to her right knee.
She presented to emergency department where the wound was cleaned and closed with sutures. She subsequently developed fevers redness and worsening pain presented to an outside emergency department ultimately again to the [place] emergency
department today. She reports that she is quite active and does ultramarathons. 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 She localizes pain to the anterior aspect of the right knee. Does admit to fevers. Limited weightbearing. Admits to
limited range of motion
Allergies / Home Medications
Past medical history: Von Willebrand's disease, essential thrombocytosis, atrial tachycardia, hypertension
Past surgical history: Hemorrhoidectomy, colonoscopy biopsy
Social history: Non-smoker, retired
Family history: Not pertinent
Allergy/AdvReac Type Severity Reaction Status Date / Time
Sulfa (Sulfonamide Allergy Unknown Verified 02/21/25 23:34
Antibiotics)
�Medication �Instructions �Recorded
albuterol sulfate 90 mcg/actuation 1 puff inhalation R Q4HPRN PRN sob 10/21/16
aerosol inhaler
cholecalciferol (vitamin D3) 50 2,000 units PO QPM 10/21/16
mcg (2,000 unit) tablet
magnesium glycinate 120 mg (as 120 mg PO HS 10/21/16
glycinate) capsule
vitamin B complex 1 tab PO QPM 10/21/16
ferrous sulfate 325 mg (65 mg 325 mg PO QPM 02/22/25
iron) tablet
flecainide 50 mg tablet 50 mg PO HS 02/22/25
losartan 50 mg tablet 75 mg PO HS 02/22/25
Vital Signs / Lab Results
Temp Pulse Resp BP Pulse Ox
98.6 F 79 18 143/76 97
02/22/25 08:00 02/22/25 08:00 02/22/25 08:00 02/22/25 08:00 02/22/25 08:00
02/22/25 00:06
02/22/25 00:06
10 point review systems reviewed and negative unless otherwise stated
General: Nontoxic in appearance, pleasant, conversational
Musculoskeletal right lower extremity
There is a transverse laceration with sutures in place over the suprapatellar region of the knee, there is associated erythematous skin changes, no expressible or active drainage or purulence today
Moderate swelling suprapatellar region, there is palpable fluctuance, mild palpable knee effusion
Moderate tenderness palpation area of fluctuance
Limited knee range of motion 0 to about 45 degrees limited by pain
No gross motor or sensory deficits distally
Diagnostic studies
Ultrasound performed right knee that shows a 4.6 x 1.4 x 4.2 cm fluid collection in the subcutaneous soft tissues
Assessment / Plan
65-year-old female status post fall concern for suprapatellar soft tissue abscess associated cellulitis right knee. I did have a long detail discussion with the patient regarding diagnosis and treatment options. She is failed outpatient oral
antibiotics with progressive symptoms ultrasound confirming soft tissue abscess. Low index of suspicion for septic joint given clinical presentation. She does have von Willebrand's disease. Discussed with hospitalist service and planning on
having hematology evaluation prior to OR. Would recommend immobilization with knee immobilizer until OR. N.p.o. at midnight. Plan for I&D tomorrow.
Nonweightbearing right lower extremity
Knee immobilizer to right lower extremity
N.p.o. at midnight
Follow-up MRI of right knee to evaluate for associated soft tissue collection/effusion
Pain control
Antibiotics per primary team
Follow-up hematology consult
Plan 4 OR tomorrow pending or availability medical clearance
--- NOTE | 2025-02-22 11:36 | CON.ID ---
Consultation
-
Date/Time Consultation Requested: February 22, 2025 0954
Date/Time Consultation Performed: February 22, 2025 1140
Requesting Provider: Dr. Jayy Guillen
Performing Provider: Dr. Melanie Nova
Reason for Consultation: Knee bursitis
Chief Complaint / Past History
Chief Complaint
Fever, knee pain and swelling.
History of Present Illness
65-year-old female with history of essential thrombocytosis, von Willebrand's disease who presented to the ER today due to fevers, increase redness, swelling and pain of right knee. On February 19, she was running a race in [place] when she tripped
and fell on the trail. She sustained laceration to her right knee piece of skin avulsion. EMT cleaned the wound. Wound kept bleeding until she applied an anticoagulant powder. She continued on with the race until the wound started bleeding
again. EMT applied anticoagulant powder. She finished the race and then came to the ED the same day. The wound was cleaned and sutured. She was prescribed 5-day course of cephalexin. However the next day on her way to a conference in [place]
ID, she developed fever, right knee swelling and redness. She went to outside ER on February 21. She was discharged on Augmentin and doxycycline. However the erythema extended outside the marked line. She continued to have fevers and chills.
She had difficulty bearing weight. She therefore came to the ER today. This morning purulence noted coming out of the knee suture. The drainage was swabbed for culture. Ultrasound showed a 4.6 x 4.2 cm fluid collection in the subcutaneous
tissue. She is currently on IV vancomycin. Orthopedic is planning to take her to the OR tomorrow.
Past History
Additional Past Medical History:
Hypertension
Von Willebrand disease Type 1 and 2
Essential thrombocytosis
Factor V Leiden mutation
Additional Past Surgical History:
Hemorrhoidectomy
Allergy History:
Sulfa (Sulfonamide Antibiotics) Allergy (Verified 02/21/25 23:34)
Unknown
Medications Reviewed: Yes
Current Antibiotics:
Vancomycin
Social History
Tobacco: Non-Smoker
Alcohol: Occasional
Drug: None
Personal: Single
Family History
Family History: Not Pertinent
Review of Systems
Review of Systems
General: Fever, Chills and Change in Appetite
HEENT: Negative Sinus Problems, Headache or Pharyngitis
Cardiovascular: Negative Chest Pain or Dyspnea
Respiratory: Negative Dyspnea or Cough
Gasteroenterology: Negative Nausea, Vomiting or Diarrhea
Genital / Urological: Negative Dysuria or Flank Pain
Endocrine: Weakness
Neurological: Negative Dizziness
All systems: All other systems were reviewed and were negative
Vital Signs
Temp Pulse Resp BP Pulse Ox
98.4 F 72 22 128/77 97
02/22/25 11:26 02/22/25 11:26 02/22/25 11:26 02/22/25 11:26 02/22/25 11:26
Physical Exam
Physical Exam
Constitutional: No Acute Distress and Comfortable
Head: Other (No maxillary or frontal sinus tenderness)
Eyes: No Conjunctival Hemorrhage and Sclera Anicteric
Cardiovascular: Regular Rate and S1/S2
Pulmonary: Clear
Gastrointestinal: Soft, Non Tender, Non Distended and Normal Bowel Sounds
Genito-Urinary: Negative CVA Tenderness
Extremities: Negative Edema
Musculoskeletal: Other (Right knee: + effusion/edema, bright erythema, warmth, tender. Suture in place with small amount purulent drainage. )
Neurological: AO x 3
Lab / Diagnostic Study Results
02/22/25 00:06
02/22/25 00:06
Abs Immat Gran (auto) 0.3 10^3/uL (0-0.05) H 02/22/25 00:06
Absolute Neuts (auto) 20.1 10^3/uL (1.4-6.5) H 02/22/25 00:06
Absolute Lymphs (auto) 1.2 10^3/uL (1.2-3.4) 02/22/25 00:06
Absolute Monos (auto) 0.9 10^3/uL (0.1-0.6) H 02/22/25 00:06
Absolute Basos (auto) 0.1 10^3/uL (0-0.2) 02/22/25 00:06
Immature Gran % 1.4 % (0-0.5) H 02/22/25 00:06
Neutrophils % 89.3 % (42.2-75.2) H 02/22/25 00:06
Lymphocytes % 5.1 % (20.5-51.1) L 02/22/25 00:06
Monocytes % 3.8 % (1.7-9.3) 02/22/25 00:06
Eosinophils % 0.1 % (0-6) 02/22/25 00:06
Basophils % 0.3 % (0-2) 02/22/25 00:06
Lactic Acid 0.8 mmol/L (0.7-2.0) 02/22/25 00:06
Microbiology Results
Micro:
02/22/25 09:32 Wound Culture - Pending
Knee - Right Gram Stain - Pending
02/22/25 00:06 Blood Culture - Pending
Blood/Venous
02/22/25 R LE US: There is a 4.6 x 1.4 x 4.2 cm mildly heterogeneous fluid collection in the subcutaneous soft tissues which may represent hematoma, possible abscess or a combination.
Assessment / Plan
# Right pre-patella abscess vs septic bursitis
# Recent fall in the aug[place]/trail with right knee skin laceration 02/19
# Leukocytosis
# Hx von-Willebrand disease
- MRI pending
- To OR tomorrow for I+D. please send deep cultures
- Add Zosyn to Vancomycin for polymicrobial coverage due to the nature for her fall.
- Trend temps/wbc.
[2025-02-22] MEDS: ZOSYN 50 IV ×2 (13:38→20:57)
--- NOTE | 2025-02-22 13:43 | CON.ONC ---
Consultation
-
Date Consultation Requested: 02/22/25
Date Consultation Performed: 02/22/25
Requesting Provider: Dr. Jayy Lynn
Performing Provider: Dr. Reynaldo Arenas
Reason for Consultation: Von willibrands disease, upcoming I&D
Impression
Impression
65-year-old male with past medical history of stated von Willebrand's disease, essential thrombocytosis, atrial tachycardia, hypertension presents with possible suprapatellar soft tissue abscess associated cellulitis right knee. Orthopedic plans
for I&D and request hematology consultation for recommendations prior to surgical procedure.
Possible suprapatellar soft tissue abscess associated cellulitis right knee
--Elevated WBC 22.5, afebrile, US concerning for hematoma versus abscess
--MRI pending
--On vancomycin and zosyn per ID
--Knee immobilization and plan for I&D tomorrow
--DDVAP before procedure and TXA given afterwards and continued for 5 days -discussed over the phone with Dr. Myke Gillis [phone], the patient's public relations representative at [facility]. Plan as per their recommendations.
Von Willebrand's disease
Essential thrombocytosis
-- plt 891, not on any half-way therapy as no known complications to elevated platelets
-- Follows with specialist at [facility] per above
-- Okay for surgery per recommendations above discussed with specialist
HTN
--On losartan
Atrial tachycardia
--On flecainide
--On tele
DVT SCD
Full code
Plan
Plan
Okay for surgery in the AM with DDVAP prior to surgery and TXA after and subsequent 5 days
Continue anti-biotics
NPO after midnight
Patient History
History of Present Illness
65-year-old male with past medical history of stated von Willebrand's disease, essential thrombocytosis, atrial tachycardia, hypertension presented to outside ED complaining of right knee pain. The patient was running in the august on 02/19 when she
tripped and fell 7/10th of a mile into her run. She used an anti-coagulant powder to the area and continued to run another 16 miles. She later presented to the [facility] ED for which the wound was cleansed and 5 sutures were placed. She was
discharged home on prophylactic cephalexin. The next day, she started to experience intermittent fevers with increased pain and tenderness in the area. 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
a presentation and went to [facility] ED for evaluation. She had x-rays and ultrasound which were reportedly normal. She received 1 dose of IV antibiotics and was discharged on Augmentin/Doxy instead of cephalexin. She gave her presentation, and
afterwards she came straight back to ED for further evaluation. She endorses fevers, chills, significant pain in right knee especially with weightbearing. She has significant limited range of motion.
In the ED, blood pressure 171/87, heart rate 80, respiratory rate 20, temperature 99.1, 99% on room air. WBC 22.5, platelets 891, absolute neutrophil count 20.1, immature granulocytes 0.3, absolute lymphocytes 1.2, absolute monocytes 0.9.
Creatinine 0.8. Ultrasound of right lower extremity revealed 4.6 x 1.4 x 4.2 cm concerning for hematoma possible abscess. In the ED when suture material was removed, scant purulent discharge was noted. Patient was started on IV vancomycin, pain
control and orthopedics was consulted. Hematology was consulted for further evaluation of von Willebrand's disease and essential thrombocytosis.
Past-Medical/Surgical History
Past medical history: Von Willebrand's disease, essential thrombocytosis, atrial tachycardia, hypertension
Past surgical history: Colon biopsy, hemorrhoidectomy
Patient Medication
�Medication �Instructions �Recorded �Confirmed �Last Taken �Type
albuterol sulfate 90 mcg/actuation 1 puff inhalation R Q4HPRN PRN sob 10/21/16 02/22/25 Unknown History
aerosol inhaler
cholecalciferol (vitamin D3) 50 2,000 units PO QPM 10/21/16 02/22/25 10/20/16 History
mcg (2,000 unit) tablet
magnesium glycinate 120 mg (as 120 mg PO HS 10/21/16 02/22/25 10/20/16 History
glycinate) capsule
vitamin B complex 1 tab PO QPM 10/21/16 02/22/25 10/20/16 History
ferrous sulfate 325 mg (65 mg 325 mg PO QPM 02/22/25 02/22/25 Unknown History
iron) tablet
flecainide 50 mg tablet 50 mg PO HS 02/22/25 02/22/25 Unknown History
losartan 50 mg tablet 75 mg PO HS 02/22/25 02/22/25 Unknown History
Active Medications
Generic Name Dose Route Start Last Admin
Trade Name Freq PRN Reason Stop Dose Admin
Acetaminophen 650 mg 02/22/25 07:42 02/22/25 08:43
Acetaminophen 325 Mg Tablet PO 03/22/25 07:41 650 mg
Q4HPRN PRN Administration
Mild Pain / Temp > 101
Flecainide Acetate 50 mg 02/22/25 22:00
Flecainide 50 Mg Tablet PO 03/22/25 21:59
HS MICHAEL
Hydromorphone HCl 0.5 mg 02/22/25 07:42
Hydromorphone 0.5 Mg/0.5 Ml Syringe IV 03/08/25 07:41
Q4HPRN PRN
Severe Pain
Vancomycin HCl 1 each/ Device 0 mls @ 0 mls/hr 02/22/25 07:42
IV
PER PROTOCOL MICHAEL
As Directed
Piperacillin Sod/Tazobactam Sod 3.375 gram in 50 mls @ 100 mls/hr 02/22/25 14:00 02/22/25 13:38
Zosyn IV 50 mls
Q6H MICHAEL Administration
Losartan Potassium 50 mg 02/22/25 22:00
Losartan 50 Mg Tablet PO 03/22/25 21:59
HS MICHAEL
Losartan Potassium 25 mg 02/22/25 22:00
Losartan 25 Mg Tablet PO 03/22/25 21:59
HS MICHAEL
Review of Systems
-
History Source: Patient
Constitutional: Reports Fever, Fatigue and Night Sweats
EENT: Reports No Symptoms
Respiratory: Reports No Symptoms
Cardiac: Reports No Symptoms
GI: Reports No Symptoms
: Reports No Symptoms
Musculoskeletal: Reports Joint Swelling (Right knee, increased warmth), Muscle Pain and Edema
Neuro: Reports No Symptoms
Physical Exam
-
General: No Apparent Distress and Comfortable
Cardiology: Normal Sinus Rhythm, S1 and S2
Pulmonary: Clear
Musculoskeletal: Other (Right knee significant swelling, erythema, laceration, warmth, limited ROM, significant pain with weight bearing. )
Skin: Warm and Dry
Psych: Calm
Labs
Lab Results
WBC 22.5 10^3/uL (4.8-10.8) H 02/22/25 00:06
RBC 4.10 10^6/uL (4.20-5.40) L 02/22/25 00:06
Hgb 12.5 g/dL (12.0-16.0) 02/22/25 00:06
Hct 38.2 % (37.0-47.0) 02/22/25 00:06
MCV 93.2 fL (81.0-99.0) 02/22/25 00:06
MCH 30.5 pg (27.0-31.0) 02/22/25 00:06
MCHC 32.7 g/dL (33.0-37.0) L 02/22/25 00:06
RDW 16.6 % (11.5-14.5) H 02/22/25 00:06
Plt Count 891 10^3/uL (130-400) H 02/22/25 00:06
MPV 9.5 fL (7.4-10.4) 02/22/25 00:06
Abs Immat Gran (auto) 0.3 10^3/uL (0-0.05) H 02/22/25 00:06
Absolute Neuts (auto) 20.1 10^3/uL (1.4-6.5) H 02/22/25 00:06
Absolute Lymphs (auto) 1.2 10^3/uL (1.2-3.4) 02/22/25 00:06
Absolute Monos (auto) 0.9 10^3/uL (0.1-0.6) H 02/22/25 00:06
Absolute Eos (auto) 0.0 10^3/uL (0-0.7) 02/22/25 00:06
Absolute Basos (auto) 0.1 10^3/uL (0-0.2) 02/22/25 00:06
Immature Gran % 1.4 % (0-0.5) H 02/22/25 00:06
Neutrophils % 89.3 % (42.2-75.2) H 02/22/25 00:06
Lymphocytes % 5.1 % (20.5-51.1) L 02/22/25 00:06
Monocytes % 3.8 % (1.7-9.3) 02/22/25 00:06
Eosinophils % 0.1 % (0-6) 02/22/25 00:06
Basophils % 0.3 % (0-2) 02/22/25 00:06
Creatinine 0.8 mg/dL (0.6-1.0) 02/22/25 00:06
Vital Signs
Vital Signs
Temp Pulse Resp BP Pulse Ox
98.4 F 72 22 128/77 97
02/22/25 11:26 02/22/25 11:26 02/22/25 11:26 02/22/25 11:26 02/22/25 11:26
--- NOTE | 2025-02-22 14:21 | PHA.VAN.IN ---
Assessment
- Assessment
Renal Function: Appears similar to baseline
Concomitant Antimicrobials: piperacillin/tazobactam
AUC Dosing Plan
- Dosing Variables
Dosing Weight (kg): 69
Dosing CrCl (ml/min): 61 - 77
Vd coefficient (L/kg): 0.7
Utilized IBW & Actual Body weight for dosing weight
- Empiric Dosing
Initial / Loading Dose: 1500mg - 02/22 06:26
Maintenance Regimen: Vanc 750mg Q12H starting at 1800
Estimated AUC (mcg*h/mL): 470 - 580
Estimated Peak (mcg*h/mL): 27.8 - 32.1
Estimated Trough (mcg/ml): 13.1 - 17.5
Estimated Half Life (H): 10.1 -12.6
- Monitoring
No levels ordered at this time: consider levels in next few days
Pharmacokinetics Vancomycin I
- -
Patient Age: 65
Patient Sex: Female
Vancomycin Day #: 1
Indication: Skin And Soft Tissue
Requesting Provider: Dr. Purcell
Pertinent Antimicrobial Allergies:
sulfonamide antibiotics - unknown
Height / Weight:
Height 5 ft 4 in
Actual Weight 68.7 kg
- Vital Signs / Lab Results
Temp Pulse Resp BP Pulse Ox
98.4 F 72 22 128/77 97
02/22/25 11:26 02/22/25 11:26 02/22/25 11:26 02/22/25 11:26 02/22/25 11:26
Lab Results - Hematology
02/22/25
00:06
WBC 22.5 H
Lab Results - Chemistry
02/22/25
00:06
BUN 13
Creatinine 0.8
Albumin 4.4
02/22/25
00:06
Lactic Acid 0.8
Microbiology Results
02/22/25 09:32 Gram Stain - Preliminary
Knee - Right
--- NOTE | 2025-02-22 14:45 | CM ---
CM reviewed chart and met with pt bedside in ED. Pt lives with her in 1 story home, [address]. Has outside grab rails.
Independent in ADLs, personal care and ambulation at baseline. Currently in knee immobilizer.
Per pt plan is MRI later today and possible OR tomorrow.
Pt states if she needs home IV antibiotics her daughter who is a nurse can assist her. 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
No hx VN/SNF. Confirms prescription coverage.
PCP: Germaine Salas
Pharmacy: [facility]
Discharge plan: Anticipate home, watch for needs
[2025-02-22] MEDS: VANCOCIN 150 IV (18:14)
[2025-02-22] MEDS: SENOKOT-S 1 TABLET PO (21:19)
[2025-02-22] MEDS: TAMBOCOR 50 MG PO (21:22)
[2025-02-22] MEDS: COZAAR 50 MG PO (21:22)
[2025-02-22] MEDS: COZAAR 25 MG PO (21:23)
[2025-02-23] VITALS (15 sets, daily range): BP systolic 103–139; BP diastolic 60–96; BMI 24.8; BMI 25.3
[2025-02-23] MEDS: ZOSYN 50 IV ×4 (01:13→21:33)
[2025-02-23] MEDS: TYLENOL 650 MG PO ×2 (01:51→11:16)
[2025-02-23] MEDS: VANCOCIN 150 IV ×2 (06:04→20:07)
[2025-02-23] MEDS: SENOKOT-S PO ×2 (08:09→20:10)
[2025-02-23 09:00] LABS: Hematocrit 34.5 % (37.0-47.0); Hemoglobin 11.2 g/dL (12.0-16.0); Mean Corp Hgb Conc. 32.5 g/dL (33.0-37.0); Mean Corpuscular Volume 94.0 fL (81.0-99.0); Platelet Count 678 10^3/uL (130-400); Red Cell Dist. Width 16.6 % (11.5-14.5)
--- NOTE | 2025-02-23 09:01 | W.PN.ONC2 ---
Today's Communication / Plan
-
Proceed with surgery with desmopressin prior and TXA as ordered post procedure as coordinated with her primary hematology team at [facility].
Ordered entered.
Impression
Impression
von Willebrand's disease
essential thrombocytosis
suprapatellar soft tissue abscess associated cellulitis right knee
Plan
Plan
Okay for surgery today with DDVAP prior to surgery and TXA after and subsequent 5 days. Orders entered.
Dr. Arenas spoke yesterday with Dr. Myke Gillis M.D. her mold checker at [facility] - [phone].
Baseline von Willebrand's panel ordered but will not be resulted for a few days but will have the information available if needed for any postsurgical bleeding complications.
> Desmopressin 21 mcg IV x 1 prior to knee surgery, typically 30 to 60 minutes preop.
> Tranexamic acid 700 mg IV TID to begin after surgery on February 23; can be converted to PO when she is taking PO
Subjective/Objective
Chief Complaint
ACS Heme Onc
Subjective
Anxious about upcoming surgery. Reassured patient that we spoke with her mold checker at [facility]. We are following through with the plan as outlined namely desmopressin prior to surgery and then tranexamic acid following surgery.
Vital Signs:
Vital Signs
Temp Pulse Resp BP Pulse Ox
98.2 F 67 18 121/64 98
02/23/25 07:05 02/23/25 07:05 02/23/25 07:05 02/23/25 07:05 02/23/25 07:05
Lab Results:
Laboratory Data
WBC 18.4 10^3/uL (4.8-10.8) H 02/23/25 08:47
Hgb 11.2 g/dL (12.0-16.0) L 02/23/25 08:47
Plt Count 678 10^3/uL (130-400) H D 07/30/25 08:47
eGFR > 60.00 02/22/25 00:06
Doppler ultrasound negative for DVT
Physical Exam
Nontoxic well-appearing female
HEENT: No Jaundice
Cardiology: S1 and S2
Pulmonary: Clear
GI: Soft and Normal Bowel Sounds
Extremities: Edema (Erythema and swelling right leg both superior and inferior to the knee)
--- NOTE | 2025-02-23 09:29 | W.PN.ID1 ---
Date of Service
Date of Service: February 23, 2025
Today's Communication
Continue Vancomycin/Zosyn
Assessment / Plan
# Right pre-patella septic bursitis
# Recent fall in the august/trail with right knee skin laceration 02/19
# Leukocytosis,improving
# von-Willebrand disease
- Wound swab: GNR
- To OR today for I+D. please send deep cultures
- Continue Zosyn to Vancomycin for polymicrobial coverage due to the nature for her fall.
- Trend temps/wbc.
Chief Complaint
-: Cellulitis
Subjective / Review of Systems
Knee drained all night.
Vital Signs / Physical Exam
Vital Signs
Vital Signs
Temp Pulse Resp BP Pulse Ox
98.2 F 67 18 121/64 98
02/23/25 07:05 02/23/25 07:05 02/23/25 07:05 02/23/25 07:05 02/23/25 07:05
Physical Exam
Constitutional: No Acute Distress and Comfortable
Cardiovascular: Regular Rate and S1/S2
Pulmonary: Clear
Gastrointestinal: Soft, Non Tender and Non Distended
Extremities: Edema (RLE decreased), Erythema (RLE: knee erythema extends up to groin and down to ankle) and Other (knee wound suture in place - cloudy thin drainage)
Neurological: AO x 3
Objective Data
Lab Data
Lab Results
02/23/25 08:47
Lactic Acid 0.8 mmol/L (0.7-2.0) 02/22/25 00:06
Total Bilirubin 0.9 mg/dl (0.2-1.3) 02/22/25 00:06
AST 20 U/L (14-36) 02/22/25 00:06
ALT 15 U/L (0-35) 02/22/25 00:06
Alkaline Phosphatase 56 U/L (38-126) 02/22/25 00:06
Most recent labs reviewed.
Micro Results:
02/22/25 09:32 Wound Culture - Preliminary
Knee - Right Gram negative bacilli
Gram Stain - Preliminary
02/22/25 00:06 Blood Culture - Preliminary
Blood/Venous No Growth in 24 hours- Final report to follow
02/22/25 R LE US: There is a 4.6 x 1.4 x 4.2 cm mildly heterogeneous fluid collection in the subcutaneous soft tissues which may represent hematoma, possible abscess or a combination.
02/22/25 MRI R knee: Prepatellar bursitis, most suspicious an infectious bursitis given the clinical history but can correlate with fluid analysis.
2. Cellulitis.
3. Trace knee joint effusion, but no MRI evidence for septic arthritis.
4. Bone marrow signal alteration of the distal femoral diaphysis and metaphysis. Considerations include red marrow reconversion or other marrow replacement process, less likely posttraumatic bone marrow edema. Clinical correlation is recommended.
[2025-02-23 09:52] LABS: Blood Urea Nitrogen 10 mg/dl (7-17); Calcium 8.5 mg/dl (8.4-10.2); Carbon Dioxide 27 mmol/L (22-30); Chloride 107 mmol/L (98-107); Estimated Creatinine Clearance 61 ml/min; Glucose 105 mg/dl (70-99); Potassium 4.2 mmol/L (3.5-5.1); Sodium 139 mmol/L (135-145); eGFR > 60.00
--- NOTE | 2025-02-23 10:13 | W.PN.HOSP.TC ---
Today's Communication/Plan
-
Continue with antibiotics
DDAVP presurgery
Left knee /bursa washout today
Assessment / Plan
Assessment / Plan
Impression
Patient is a 65y F with PMH significant for vWD, ET and hypertension who presents to ED complaining of pain, redness and swelling of the R knee 3 days s/p laceration and repair.
Right knee area cellulitis with concern for septic prepatellar bursitis
Conditions prior to admission:
Essential hypertension
Atrial tachycardia.
Von Willebrand disease type II.
Essential thrombocytosis.
Plan:
Right knee cellulitis with concern for septic bursitis/abscess.
Exam with significant erythema and induration around the knee area extending approximately and distally. Sutured wound with expressed purulent discharge.
Patient reports fever and chills prior to admission while on oral antibiotics
WBC 22.5k on admission
Ultrasound: There is a 4.6 x 1.4 x 4.2 cm mildly heterogeneous fluid collection in the subcutaneous soft tissues which may represent hematoma, possible abscess or a combination.
MRI shows prepatellar bursitis and cellulitis. Trace knee joint effusion but no MRI evidence of septic arthritis noted.Bone marrow signal alteration of the distal femoral diaphysis and metaphysis. Considerations include red marrow reconversion or
other marrow replacement process, less likely posttraumatic bone marrow edema.
X-rays at [facility] reportedly unremarkable.
Wound cultures showing gram-negative bacilli
Blood cultures negative so far
Continue with antibiotics per ID-on vancomycin and Zosyn
Essential hypertension
Continue losartan
Atrial tachycardia
Telemetry monitoring
Continue preadmission flecainide
Von Willebrand disease type II.
Essential thrombocytosis.
Patient reports no major bleeding with endoscopic procedures involving biopsy such as endoscopy and colonoscopy
Noted with platelet count of 891.
Appreciate hematology input-recommending DDAVP pre Surgery today and tranexamic acid postsurgery for 5 days
DVT prophylaxis: SCD
CODE STATUS: Full code
Anticipated Discharge: > 48 hours
Subjective/Interval History
-
Date of Service: February 23, 2025
Pain from the right knee area better controlled. Using Tylenol only.
Denies any fever or chills.
No nausea vomiting.
No shortness of breath, chest pain or dizziness.
Patient has chronic constipation and uses [id number] Fleet enemas and requesting one for today.
Objective Data
-
Labs:
Laboratory Results
02/23/25
08:47
WBC 18.4 H
Hgb 11.2 L
Hct 34.5 L
Plt Count 678 H D
Sodium 139
Potassium 4.2
Chloride 107
Carbon Dioxide 27
BUN 10
Creatinine 0.8
Glucose 105 H
Calcium 8.5
Vital Signs:
Vital Signs
Temp Pulse Resp BP Pulse Ox
98.2 F 67 18 121/64 98
02/23/25 07:05 02/23/25 07:05 02/23/25 07:05 02/23/25 07:05 02/23/25 07:05
I&O
02/22/25 02/23/25 02/24/25
06:59 06:59 06:59
Intake Total 2009
Balance 2009
Physical Exam
-
General: No Apparent Distress
Respiratory: Clear to Auscultation and Non Labored Respirations; Negative Accessory Resp Muscle Use
Cardiac: Regular Rhythm and S1/S2; Negative Tachycardic
GI: Soft
Musculoskeletal: Edema, Right Lower Extrem (Increased warmth or both supra and infra knee area.)
Neuro: AO x 3
Data Reviewed
-
Labs: Labs Reviewed by me
--- NOTE | 2025-02-23 10:24 | PHA.VAN.FU ---
Vancomycin Assessment / Plan
- Assessment
Renal Function: Stable
WBC's are: Trending Down
In the past 24 hrs, patient has been: Afebrile
Concomitant Antimicrobials: piperacillin/tazobactam
- Dosing Plan
Continue: Vanc 750mg Q12H
- Monitoring Plan
No level(s) ordered at this time: consider levels in next few days
- Follow Up
Pharmacy will continue to follow.
Vancomycin Follow UP
- -
Patient Age: 65
Patient Sex: Female
Vancomycin Day #: 2
Indication: Skin And Soft Tissue
Requesting Provider: Dr. Purcell
Pertinent Antimicrobial Allergies:
sulfonamide antibiotics - unknown
Height / Weight:
Height 5 ft 4 in
Actual Weight 65.544 kg
- Vital Signs / Lab Results
Temp Pulse Resp BP Pulse Ox
98.2 F 67 18 121/64 98
02/23/25 07:05 02/23/25 07:05 02/23/25 07:05 02/23/25 07:05 02/23/25 07:05
Lab Results - Hematology
02/22/25 02/23/25
00:06 08:47
WBC 22.5 H 18.4 H
Lab Results - Chemistry
02/22/25 02/23/25
00:06 08:47
BUN 13 10
Creatinine 0.8 0.8
Estimated Creat Clear 61
Albumin 4.4
02/22/25
00:06
Lactic Acid 0.8
Microbiology Results
02/22/25 09:32 Wound Culture - Preliminary
Knee - Right Gram negative bacilli
Gram Stain - Preliminary
02/22/25 00:06 Blood Culture - Preliminary
Blood/Venous No Growth in 24 hours- Final report to follow
[2025-02-23] MEDS: FLEET MINERAL OIL ENEMA 133 ML RECTAL (11:13)
[2025-02-23] MEDS: DDAVP 55.25 MCG IV (16:17)
--- NOTE | 2025-02-23 16:25 | PTCARENOTE ---
Report given to OR. DDAVP started. Transport en route to OR.
--- NOTE | 2025-02-23 17:38 | OR.RPT ---
Operative Report
Operative Report
Date
February 23, 2025
Anesthesia Type:
General
Operative Indications:
Right knee septic bursitis/abscess
Operative Findings :
Gross purulence, no communication with joint
Complications:
None
Implants:
None
Procedure and Technique:
Excisional irrigation debridement right knee, bursectomy
INDICATIONS FOR PROCEDURE:
Patient is an active 65-year-old female sustained a fall during a trail race with a laceration to her right knee. She was seen in the emergency department underwent irrigation debridement at bedside with wound closure. She subsequently developed
significantly worsening pain redness and drainage in addition to fevers. She presented to the emergency department several days later after failure of oral antibiotics and was found to have a fluid collection in the area of suprapatellar bursa.
She was admitted to the hospitalist service. Orthopedics was consulted for consideration of surgical intervention. We discussed postsurgical nonsurgical options. After discussion mutually acted to proceed with irrigation debridement of right
knee. We discussed risks benefits alternatives of surgery. Discussed the usual expected perioperative postoperative course. No guarantees were given. After discussion written informed consent was obtained
OPERATIVE PROCEDURE:
Patient was seen and identified in the preoperative holding area. Operative extremities marked. All questions were addressed and answered. She was taken to the operating room where general anesthesia was administered. Of note she has von
Willebrand's and was given desmopressin 30 minutes prior to incision. She was also given TXA intraoperatively. Nonsterile tourniquet was applied. Operative extremity was prepped and draped in normal sterile fashion. Antibiotics were held for
intraoperative cultures. Timeout was performed again identifying the correct operative extremity. Previous transverse wound was utilized. This was extended both medially and laterally. Nonviable tissue was excised around the edges of the wound.
Gross purulence was encountered. Cultures were obtained. Sharp excisional debridement was performed subcutaneous tissues deep fascial layer of bursal tissue utilizing knife, curette, rongeur. No communication of the joint was noted. Bursal
tissue was sharply excised. Tourniquet was deflated hemostasis was achieved electrocautery. Wound was then copiously irrigated with 3 L normal saline solution. Drain was placed. Wound was closed in a layered fashion utilizing 2-0 PDS for
subcutaneous layer. 2-0 nylon was utilized for skin. Sterile dressing was applied consisting of Xeroform, 4 x 4 gauze, ABD Webril Morris bandage. Anesthesia was versed patient was taken to PACU in stable condition. Postoperative plans include
weightbearing to patient's tolerance in the knee immobilizer. Follow-up intraoperative wound cultures.
Disposition:
PACU stable condition
--- NOTE | 2025-02-23 18:45 | PTCARENOTE ---
Telephone report received from [employer] MANAGER Lin @18:25; patient arrived @18:45 in bed, on telemetry, Hemovac in place, RLE deanne wrap c/d/i; reports tolerable 'burning' in right knee; VSS; will give detailed report to oncoming nightshift RN.
[2025-02-23] MEDS: NSS 1000 IV (20:01)
[2025-02-23] MEDS: COLACE PO (20:10)
[2025-02-23] MEDS: COZAAR 25 MG PO (21:32)
[2025-02-23] MEDS: COZAAR 50 MG PO (21:33)
[2025-02-23] MEDS: TAMBOCOR 50 MG PO (21:33)
[2025-02-23] MEDS: TRANEXAMIC ACID 107 MG IV (22:56)
[2025-02-24] MEDS: ZOSYN 50 IV ×4 (01:42→19:57)
[2025-02-24 03:00] VITALS: BP 128/75
[2025-02-24] MEDS: PEPCID 20 MG PO (03:30)
[2025-02-24] MEDS: NSS 1000 IV ×2 (04:31→18:24)
[2025-02-24 06:00] VITALS: BMI 25.4
[2025-02-24] MEDS: VANCOCIN 150 IV (06:29)
[2025-02-24 07:20] VITALS: BP 113/74
--- NOTE | 2025-02-24 07:45 | W.PN.ORTHO ---
Addendum entered and electronically signed by Gerard Yin MD 02/24/25 07:47:
Drain was removed by myself this morning.
Original Note:
Today's Communication / Plan
-
65-year-old female postop day 1 status post I&D right knee doing well
Weightbearing as tolerated right lower extremity in knee immobilizer
Pain control
Follow-up cultures
Antibiotics per primary team
DVT prophylaxis
Ultimately will need to follow-up with myself outpatient 10 to 14 days for repeat clinical assessment over sutures
Assessment
.
Dressing:
Clean, dry and intact.
Subjective
.
.:
Patient resting comfortably in bed this morning. Pain very well-controlled. She reports that she feels significant improvement compared to preoperatively.
Vital Signs and Labs
.
Vital Signs and Labs:
Lab Results
02/23/25 08:47
02/23/25 08:47
Temp Pulse Resp BP Pulse Ox
98.6 F 69 16 128/75 97
02/24/25 03:00 02/24/25 03:00 02/24/25 03:00 02/24/25 03:00 02/24/25 03:00
Physical Exam
-
Musculoskeletal right lower extremity
Dressing clean dry and intact
Drain with essentially no to minimal bloody drainage in canister
Positive EHL, FHL, ankle dorsi, plantarflexion
Brisk cap refill distally
--- NOTE | 2025-02-24 08:10 | PHA.VAN.FU ---
Addendum entered and electronically signed by Joy Fields [facility] 02/24/25 16:24:
BUN & SCR ordered per protocol
Original Note:
Vancomycin Assessment / Plan
- Assessment
Renal Function: Stable
WBC's are: Trending Down
In the past 24 hrs, patient has been: Afebrile
Concomitant Antimicrobials: piperacillin/tazobactam
- Dosing Plan
Continue: Vanc 750mg Q12H
- Monitoring Plan
Peak Level: 02/24 21:00
Trough Level: 02/25 05:30
Monitoring Comments: levels to be obtained after 5th maintenance dose
- Follow Up
Pharmacy will continue to follow.
Vancomycin Follow UP
- -
Patient Age: 65
Patient Sex: Female
Vancomycin Day #: 3
Indication: Skin And Soft Tissue
Requesting Provider: Dr. Purcell
Pertinent Antimicrobial Allergies:
sulfonamide antibiotics - unknown
Height / Weight:
Height 5 ft 4 in
Actual Weight 67.086 kg
- Vital Signs / Lab Results
Temp Pulse Resp BP Pulse Ox
98.1 F 59 16 113/74 99
02/24/25 07:20 02/24/25 07:20 02/24/25 07:20 02/24/25 07:20 02/24/25 07:20
Lab Results - Hematology
02/22/25 02/23/25
00:06 08:47
WBC 22.5 H 18.4 H
Lab Results - Chemistry
02/22/25 02/23/25
00:06 08:47
BUN 13 10
Creatinine 0.8 0.8
Estimated Creat Clear 61
Albumin 4.4
02/22/25
00:06
Lactic Acid 0.8
Microbiology Results
02/22/25 09:32 Wound Culture - Preliminary
Knee - Right Gram negative bacilli
Gram Stain - Preliminary
02/22/25 00:06 Blood Culture - Preliminary
Blood/Venous No Growth in 48 hours- Final report to follow
02/23/25 17:00 Gram Stain - Preliminary
Knee - Right
02/23/25 17:00 Gram Stain - Preliminary
Knee - Right
[2025-02-24] MEDS: COLACE 100 MG PO (08:38)
[2025-02-24] MEDS: SENOKOT-S 1 TABLET PO (08:38)
[2025-02-24] MEDS: TRANEXAMIC ACID 107 MG IV ×3 (09:27→21:20)
[2025-02-24 11:00] VITALS: BP 132/75
--- NOTE | 2025-02-24 11:42 | W.PN.ID1 ---
Date of Service
Date of Service: February 24, 2025
Today's Communication
Continue IV abx's pending cx data.
Assessment / Plan
# Right pre-patella septic bursitis
# Recent fall in the august/trail with right knee skin laceration 02/19
# Leukocytosis,improving
# von-Willebrand disease
- Wound swab: GNR
- 02/23 s/p OR I+D, bursectomy. No joint involvement
OR cultures negative.
- Continue Zosyn and Vancomycin for now pending OR cx.
- Trend wbc
Chief Complaint
-: Cellulitis
Subjective / Review of Systems
Surgery went well.
Vital Signs / Physical Exam
Vital Signs
Vital Signs
Temp Pulse Resp BP Pulse Ox
98.6 F 59 16 132/75 99
02/24/25 11:00 02/24/25 11:00 02/24/25 11:00 02/24/25 11:00 02/24/25 11:00
Physical Exam
Constitutional: No Acute Distress
Pulmonary: Clear
Gastrointestinal: Non Tender and Non Distended
Extremities: Edema (RLE), Erythema (resolving from thigh and leg) and Other
Neurological: AO x 3
Objective Data
Lab Data
Lab Results
02/23/25 08:47
02/23/25 08:47
Estimated Creat Clear 61 ml/min 02/23/25 08:47
Lactic Acid 0.8 mmol/L (0.7-2.0) 02/22/25 00:06
Total Bilirubin 0.9 mg/dl (0.2-1.3) 02/22/25 00:06
AST 20 U/L (14-36) 02/22/25 00:06
ALT 15 U/L (0-35) 02/22/25 00:06
Alkaline Phosphatase 56 U/L (38-126) 02/22/25 00:06
Most recent labs reviewed.
Micro Results:
02/22/25 09:32 Wound Culture - Preliminary
Knee - Right Gram negative bacilli
Gram Stain - Preliminary
02/22/25 00:06 Blood Culture - Preliminary
Blood/Venous No Growth in 48 hours- Final report to follow
02/23/25 17:00 Wound Culture - Pending
Knee - Right Gram Stain - Preliminary
02/23/25 17:00 Tissue Culture - Pending
Knee - Right Gram Stain - Preliminary
02/23/25 17:00 Anaerobic Culture - Pending
Knee - Right
02/22/25 R LE US: There is a 4.6 x 1.4 x 4.2 cm mildly heterogeneous fluid collection in the subcutaneous soft tissues which may represent hematoma, possible abscess or a combination.
02/22/25 MRI R knee: Prepatellar bursitis, most suspicious an infectious bursitis given the clinical history but can correlate with fluid analysis.
2. Cellulitis.
3. Trace knee joint effusion, but no MRI evidence for septic arthritis.
4. Bone marrow signal alteration of the distal femoral diaphysis and metaphysis. Considerations include red marrow reconversion or other marrow replacement process, less likely posttraumatic bone marrow edema. Clinical correlation is recommended.
[2025-02-24] MEDS: PROTONIX 40 MG PO (12:31)
--- NOTE | 2025-02-24 13:40 | CM ---
CM following re:L discharge planning.
Reviewed pt's chart, met with pt.
Pt is postop day 1 status post I&D right knee, doing well, ID following, continue supportive care.
Pt lives with her in 1 story home and pt is independent in all areas [employer]IV[employer]ESSIONAL.
D/C plan: home with anticipated no needs vs VN if indicated.
CM will follow with discharge plan updates as hospitalization progresses
--- NOTE | 2025-02-24 14:35 | W.PN.HOSP.TC ---
Today's Communication/Plan
-
Continue with antibiotics
Follow culture data
Continue tranexamic acid for 5 days in total
Assessment / Plan
Assessment / Plan
Impression
Patient is a 65y F with PMH significant for vWD, ET and hypertension who presents to ED complaining of pain, redness and swelling of the R knee 3 days s/p laceration and repair.
Right knee area cellulitis with concern for septic prepatellar bursitis
Conditions prior to admission:
Essential hypertension
Atrial tachycardia.
Von Willebrand disease type II.
Essential thrombocytosis.
Plan:
Right knee cellulitis with concern for septic bursitis/abscess.
Exam with significant erythema and induration around the knee area extending approximately and distally. Sutured wound with expressed purulent discharge.
Patient reports fever and chills prior to admission while on oral antibiotics
WBC 22.5k on admission
Ultrasound: There is a 4.6 x 1.4 x 4.2 cm mildly heterogeneous fluid collection in the subcutaneous soft tissues which may represent hematoma, possible abscess or a combination.
MRI shows prepatellar bursitis and cellulitis. Trace knee joint effusion but no MRI evidence of septic arthritis noted.Bone marrow signal alteration of the distal femoral diaphysis and metaphysis. Considerations include red marrow reconversion or
other marrow replacement process, less likely posttraumatic bone marrow edema.
X-rays at [facility] reportedly unremarkable.
Wound cultures showing gram-negative bacilli
Blood cultures negative so far
Continue with antibiotics per ID-on vancomycin and Zosyn
Status post Excisional irrigation debridement right knee, bursectomy 02/23
Essential hypertension
Continue losartan
Atrial tachycardia
Telemetry monitoring
Continue preadmission flecainide
Von Willebrand disease type II.
Essential thrombocytosis.
Patient reports no major bleeding with endoscopic procedures involving biopsy such as endoscopy and colonoscopy
Noted with platelet count of 891.
Appreciate hematology input-recommending DDAVP pre Surgery and tranexamic acid postsurgery for 5 days
H&H stable
DVT prophylaxis: SCD
CODE STATUS: Full code
Anticipated Discharge: Within 24 hours
Subjective/Interval History
-
Date of Service: February 24, 2025
Improved pain and redness post right knee I&D.
No fever or chills.
Denies any nausea vomiting.
Had a BM.
Denies shortness of breath or chest pain. No dizziness.
Objective Data
-
Vital Signs:
Vital Signs
Temp Pulse Resp BP Pulse Ox
98.6 F 59 16 132/75 99
02/24/25 11:00 02/24/25 11:00 02/24/25 11:00 02/24/25 11:00 02/24/25 11:00
I&O
02/23/25 02/24/25 02/25/25
06:59 06:59 06:59
Intake Total 2009 657 / 657
Balance 2009 657 / 657
Physical Exam
-
Respiratory: Non Labored Respirations; Negative Accessory Resp Muscle Use
Cardiac: Regular Rhythm and S1/S2
GI: Soft
Musculoskeletal: Other (Right knee surgical dressing)
Neuro: AO x 3
Psych: Calm
Data Reviewed
-
Labs: Labs Reviewed by me
[2025-02-24] MEDS: TYLENOL 650 MG PO ×2 (15:06→19:57)
[2025-02-24 15:10] VITALS: BP 134/73
[2025-02-24 19:00] VITALS: BP 130/73
[2025-02-24] MEDS: SENOKOT-S PO (19:57)
[2025-02-24] MEDS: COLACE PO (19:57)
[2025-02-24] MEDS: TAMBOCOR 50 MG PO (21:22)
[2025-02-24] MEDS: COZAAR 25 MG PO (21:22)
[2025-02-24] MEDS: COZAAR 50 MG PO (21:22)
[2025-02-24 23:00] VITALS: BP 149/87
[2025-02-24] MEDS: TUMS CHEWABLE TABLET 200 MG PO (23:49)
[2025-02-25] MEDS: ZOSYN 50 IV ×2 (01:37→09:44)
[2025-02-25 03:00] VITALS: BP 137/80
[2025-02-25 06:00] VITALS: BMI 27.2
[2025-02-25 06:49] LABS: Blood Urea Nitrogen 11 mg/dl (7-17); Estimated Creatinine Clearance 69 ml/min
[2025-02-25 06:51] LABS: Hematocrit 30.9 % (37.0-47.0); Hemoglobin 10.2 g/dL (12.0-16.0); Mean Corp Hgb Conc. 33.0 g/dL (33.0-37.0); Mean Corpuscular Volume 91.4 fL (81.0-99.0); Platelet Count 696 10^3/uL (130-400); Red Cell Dist. Width 16.0 % (11.5-14.5)
[2025-02-25 07:15] VITALS: BP 160/88
[2025-02-25] MEDS: TRANEXAMIC ACID 107 MG IV ×3 (09:45→22:13)
[2025-02-25] MEDS: COLACE PO ×2 (09:46→20:08)
[2025-02-25] MEDS: PROTONIX PO (09:49)
[2025-02-25] MEDS: SENOKOT-S PO ×2 (09:54→20:08)
--- NOTE | 2025-02-25 11:47 | W.PN.ID1 ---
Date of Service
Date of Service: February 25, 2025
Today's Communication
See below.
Assessment / Plan
# Right pre-patella septic bursitis
# Recent fall in the august/trail with right knee skin laceration 02/19
# Leukocytosis,improving
# von-Willebrand disease
- Wound swab: E. coli and Serratia (resistant to Zosyn and cephalosporins)
- 02/23 s/p OR I+D, bursectomy. No joint involvement
OR cultures GNR
- DC Zosyn/Vancomycin.
- Start Ertapenem 1g IV q24h.
- Discussed potential outpatient abx regimen: either Bactrim or Cipro.
Of note, pt is an avid runner, preferably avoid cipro - risk of tendinitis.
She reports GI upset with Bactrim in the remote past, but willing to try it again.
Trial of Bactrim DS 1 po bid while in hospital.
Chief Complaint
-: Cellulitis
Subjective / Review of Systems
Continues to fill improve.
Vital Signs / Physical Exam
Vital Signs
Vital Signs
Temp Pulse Resp BP Pulse Ox
98 F 59 16 160/88 97
02/25/25 07:15 02/25/25 07:15 02/25/25 07:15 02/25/25 07:15 02/25/25 07:15
Physical Exam
Constitutional: No Acute Distress and Comfortable
Pulmonary: Clear
Gastrointestinal: Non Tender and Non Distended
Extremities: Edema (RLE decreased) and Other (Dressing dry)
Neurological: AO x 3
Objective Data
Lab Data
Lab Results
02/25/25 05:55
02/25/25 05:55
Estimated Creat Clear 69 ml/min 02/25/25 05:55
Lactic Acid 0.8 mmol/L (0.7-2.0) 02/22/25 00:06
Total Bilirubin 0.9 mg/dl (0.2-1.3) 02/22/25 00:06
AST 20 U/L (14-36) 02/22/25 00:06
ALT 15 U/L (0-35) 02/22/25 00:06
Alkaline Phosphatase 56 U/L (38-126) 02/22/25 00:06
Most recent labs reviewed.
Micro Results:
02/23/25 17:00 Anaerobic Culture - Preliminary
Knee - Right Culture pending. Anaerobic cultures are examined after 3
days incubation. Additional information to follow.
02/23/25 17:00 Wound Culture - Preliminary
Knee - Right Gram negative bacilli
Gram Stain - Preliminary
02/23/25 17:00 Tissue Culture - Preliminary
Knee - Right Gram negative bacilli
Gram Stain - Preliminary
02/22/25 09:32 Wound Culture - Final
Knee - Right Escherichia coli
Serratia marcescens
Gram Stain - Final
02/22/25 00:06 Blood Culture - Preliminary
Blood/Venous No Growth in 72 hours- Final report to follow
02/22/25 R LE US: There is a 4.6 x 1.4 x 4.2 cm mildly heterogeneous fluid collection in the subcutaneous soft tissues which may represent hematoma, possible abscess or a combination.
02/22/25 MRI R knee: Prepatellar bursitis, most suspicious an infectious bursitis given the clinical history but can correlate with fluid analysis.
2. Cellulitis.
3. Trace knee joint effusion, but no MRI evidence for septic arthritis.
4. Bone marrow signal alteration of the distal femoral diaphysis and metaphysis. Considerations include red marrow reconversion or other marrow replacement process, less likely posttraumatic bone marrow edema. Clinical correlation is recommended.
[2025-02-25 12:03] VITALS: BP 164/93
[2025-02-25] MEDS: INVANZ 60 MG IV (12:36)
[2025-02-25] MEDS: BACTRIM DS 800 MG/160 MG 1 TABLET PO ×2 (12:38→20:07)
--- NOTE | 2025-02-25 13:45 | W.PN.HOSP.TC ---
Today's Communication/Plan
-
Switch to Ertapenem
tranexamic acid
Assessment / Plan
Assessment / Plan
Impression
Patient is a 65y F with PMH significant for vWD, ET and hypertension who presents to ED complaining of pain, redness and swelling of the R knee 3 days s/p laceration and repair.
Right knee area cellulitis with concern for septic prepatellar bursitis
Conditions prior to admission:
Essential hypertension
Atrial tachycardia.
Von Willebrand disease type II.
Essential thrombocytosis.
Plan:
Right knee cellulitis with concern for septic bursitis/abscess.
Exam with significant erythema and induration around the knee area extending approximately and distally. Sutured wound with expressed purulent discharge.
Patient reports fever and chills prior to admission while on oral antibiotics
WBC 22.5k on admission
Ultrasound: There is a 4.6 x 1.4 x 4.2 cm mildly heterogeneous fluid collection in the subcutaneous soft tissues which may represent hematoma, possible abscess or a combination.
MRI shows prepatellar bursitis and cellulitis. Trace knee joint effusion but no MRI evidence of septic arthritis noted.Bone marrow signal alteration of the distal femoral diaphysis and metaphysis. Considerations include red marrow reconversion or
other marrow replacement process, less likely posttraumatic bone marrow edema.
X-rays at [facility] reportedly unremarkable.
Wound cultures:- E. coli and Serratia
02/23 s/p OR I+D, bursectomy. No joint involvement
OR cultures GNR
Switched to Ertapenem
Blood cultures negative so far
Essential hypertension
Continue losartan
Atrial tachycardia
Telemetry monitoring
Continue preadmission flecainide
Von Willebrand disease type II.
Essential thrombocytosis.
Patient reports no major bleeding with endoscopic procedures involving biopsy such as endoscopy and colonoscopy
Noted with platelet count of 891.
Appreciate hematology input-recommending DDAVP pre Surgery and tranexamic acid postsurgery for 5 days
H&H stable
DVT prophylaxis: SCD
CODE STATUS: Full code
Anticipated Discharge: 24 - 48 hours
Subjective/Interval History
-
Date of Service: February 25, 2025
No acute events overnight
Objective Data
-
Labs:
Laboratory Results
02/25/25
05:55
WBC 14.0 H
Hgb 10.2 L
Hct 30.9 L
Plt Count 696 H
BUN 11
Creatinine 0.8
Vital Signs:
Vital Signs
Temp Pulse Resp BP Pulse Ox
97.7 F 64 16 164/93 98
02/25/25 12:03 02/25/25 12:03 02/25/25 12:03 02/25/25 12:03 02/25/25 12:03
I&O
02/24/25 02/25/25 02/26/25
06:59 06:59 06:59
Intake Total 657 / 657 1206 / 1926 720 / 720
Balance 657 / 657 1206 / 1926 720 / 720
Review of Systems
-
History Source: Patient
All other systems: Not reviewed unless documented
Physical Exam
-
Respiratory: Non Labored Respirations; Negative Accessory Resp Muscle Use
Cardiac: Regular Rhythm and S1/S2
GI: Soft
Musculoskeletal: Other (Right knee surgical dressing)
Neuro: AO x 3
Psych: Calm
Data Reviewed
-
Labs: Labs Reviewed by me
--- NOTE | 2025-02-25 14:08 | CM ---
CM following re:L discharge planning.
Reviewed pt's chart, met with pt.
Pt is postop day 2 status post I&D right knee, doing well, ID following, continue supportive care.
Pt lives with her in 1 story home and pt is independent in all areas NEGATIVE CHECKER.
D/C plan: home with anticipated no needs vs VN if indicated.
CM will follow with discharge plan updates as hospitalization progresses
[2025-02-25 15:15] VITALS: BP 149/93
[2025-02-25] MEDS: PROTONIX 40 MG PO (15:35)
--- NOTE | 2025-02-25 16:12 | W.PN.ORTHO ---
Today's Communication / Plan
-
65 yo F POD 2 s/p I and D R knee doing well
WBAT RLE in KI
Dressing change PRN, per nursing and patient wound looks well
Please keep wound covered and dry until follow up
Pain control
Antibiotics per ID
Follow up final cultures
F/u outpatient with myself in 10-14 days post op
Subjective
.
.:
Patient resting comfortably. Feels continued improvement
Vital Signs and Labs
.
Vital Signs and Labs:
Lab Results
02/25/25 05:55
02/25/25 05:55
Temp Pulse Resp BP Pulse Ox
98.3 F 69 16 149/93 98
02/25/25 15:15 02/25/25 15:15 02/25/25 15:15 02/25/25 15:15 02/25/25 15:15
Physical Exam
-
MSK RLE
Dressings clean dry and intact
+ehl/fhl, ankle df/pf
[2025-02-25] MEDS: COZAAR 25 MG PO (22:12)
[2025-02-25] MEDS: COZAAR 50 MG PO (22:12)
[2025-02-25] MEDS: TAMBOCOR 50 MG PO (22:12)
[2025-02-25] MEDS: NON-FORMULARY ITEM 400 MG PO (22:13)
[2025-02-25 23:45] VITALS: BP 127/67
[2025-02-26] MEDS: TYLENOL 650 MG PO (00:10)
[2025-02-26 06:47] LABS: ALT (SGPT) 16 U/L (0-35); AST (SGOT) 18 U/L (14-36); Albumin 3.6 g/dl (3.5-5.0); Alkaline Phosphatase 41 U/L (38-126); Blood Urea Nitrogen 11 mg/dl (7-17); Calcium 8.6 mg/dl (8.4-10.2); Carbon Dioxide 29 mmol/L (22-30); Chloride 108 mmol/L (98-107); Estimated Creatinine Clearance 61 ml/min; Glucose 90 mg/dl (70-99); Potassium 4.7 mmol/L (3.5-5.1); Sodium 142 mmol/L (135-145); Total Protein 6.0 g/dl (6.3-8.2); eGFR > 60.00
[2025-02-26 06:53] LABS: Hematocrit 35.1 % (37.0-47.0); Hemoglobin 11.2 g/dL (12.0-16.0); Mean Corp Hgb Conc. 31.9 g/dL (33.0-37.0); Mean Corpuscular Volume 93.9 fL (81.0-99.0); Platelet Count 793 10^3/uL (130-400); Red Cell Dist. Width 15.9 % (11.5-14.5)
[2025-02-26 07:04] VITALS: BMI 24.6
[2025-02-26 07:15] VITALS: BP 130/81
[2025-02-26] MEDS: TRANEXAMIC ACID 107 MG IV (08:57)
[2025-02-26] MEDS: BACTRIM DS 800 MG/160 MG 1 TABLET PO (08:58)
[2025-02-26] MEDS: COLACE PO (08:59)
[2025-02-26] MEDS: SENOKOT-S PO (08:59)
--- NOTE | 2025-02-26 09:30 | W.PN.ID1 ---
Date of Service
Date of Service: February 26, 2025
Today's Communication
After Ertapenem dose today, can dc home on Bactrim DS 1 tab po bid x 14 more days.
Assessment / Plan
# Right pre-patella septic bursitis
# Recent fall in the august/trail with right knee skin laceration 02/19
# Leukocytosis,improving
# von-Willebrand disease
- Wound swab: E. coli and Serratia (resistant to Zosyn and cephalosporins)
- 02/23 s/p OR I+D, bursectomy. No joint involvement
OR cultures GNR
- Ertapenem 1g IV q24h (d2)
- Patient tolerating Bactrim. After Ertapenem dose today, can dc home on Bactrim DS 1 tab po bid x 14 more days.
Avoid K-rich foods while on Bactrim.
Chief Complaint
-: Cellulitis
Subjective / Review of Systems
Tolerating Bactrim thus far.
Knee is doing well.
Vital Signs / Physical Exam
Vital Signs
Vital Signs
Temp Pulse Resp BP Pulse Ox
98.1 F 60 14 130/81 99
02/26/25 07:15 02/26/25 07:15 02/26/25 07:15 02/26/25 07:15 02/26/25 07:15
Physical Exam
Constitutional: No Acute Distress and Comfortable
Pulmonary: Clear
Gastrointestinal: Non Tender and Non Distended
Extremities: Other (Dressing dry); Negative Erythema (Right knee)
Neurological: AO x 3
Objective Data
Lab Data
Lab Results
02/26/25 05:25
02/26/25 05:24
Estimated Creat Clear 61 ml/min 02/26/25 05:24
Lactic Acid 0.8 mmol/L (0.7-2.0) 02/22/25 00:06
Total Bilirubin 0.4 mg/dl (0.2-1.3) 02/26/25 05:24
AST 18 U/L (14-36) 02/26/25 05:24
ALT 16 U/L (0-35) 02/26/25 05:24
Alkaline Phosphatase 41 U/L (38-126) 02/26/25 05:24
Most recent labs reviewed.
Micro Results:
02/23/25 17:00 Tissue Culture - Preliminary
Knee - Right Gram negative bacilli
Gram Stain - Preliminary
02/22/25 00:06 Blood Culture - Preliminary
Blood/Venous No Growth in 4 days- Final report to follow
02/23/25 17:00 Anaerobic Culture - Preliminary
Knee - Right Culture pending. Anaerobic cultures are examined after 3
days incubation. Additional information to follow.
02/23/25 17:00 Wound Culture - Preliminary
Knee - Right Gram negative bacilli
Gram Stain - Preliminary
02/22/25 09:32 Wound Culture - Final
Knee - Right Escherichia coli
Serratia marcescens
Gram Stain - Final
02/22/25 R LE US: There is a 4.6 x 1.4 x 4.2 cm mildly heterogeneous fluid collection in the subcutaneous soft tissues which may represent hematoma, possible abscess or a combination.
02/22/25 MRI R knee: Prepatellar bursitis, most suspicious an infectious bursitis given the clinical history but can correlate with fluid analysis.
2. Cellulitis.
3. Trace knee joint effusion, but no MRI evidence for septic arthritis.
4. Bone marrow signal alteration of the distal femoral diaphysis and metaphysis. Considerations include red marrow reconversion or other marrow replacement process, less likely posttraumatic bone marrow edema. Clinical correlation is recommended.
--- NOTE | 2025-02-26 11:07 | W.PN.HOSP.TC ---
Addendum entered and electronically signed by Herbert Magaña MD 02/27/25 15:47:
[id number]
Original Note:
Today's Communication/Plan
-
dc on Tranexamic acid for 7 more doses to complete 15 doses
dc home on Bactrim DS 1 tab po bid x 14 more days.
Wound care as directed in DC instructions
DC home with f/u with PCP, Orthopedics, ID, Hematology
F/u CBC and BMP outpatient
Assessment / Plan
Assessment / Plan
Impression
Patient is a 65y F with PMH significant for vWD, ET and hypertension who presents to ED complaining of pain, redness and swelling of the R knee 3 days s/p laceration and repair.
Right knee area cellulitis with concern for septic prepatellar bursitis
Conditions prior to admission:
Essential hypertension
Atrial tachycardia.
Von Willebrand disease type II.
Essential thrombocytosis.
Plan:
Right knee cellulitis with concern for septic bursitis/abscess.
Exam with significant erythema and induration around the knee area extending approximately and distally. Sutured wound with expressed purulent discharge.
Patient reports fever and chills prior to admission while on oral antibiotics
WBC 22.5k on admission
Ultrasound: There is a 4.6 x 1.4 x 4.2 cm mildly heterogeneous fluid collection in the subcutaneous soft tissues which may represent hematoma, possible abscess or a combination.
MRI shows prepatellar bursitis and cellulitis. Trace knee joint effusion but no MRI evidence of septic arthritis noted.Bone marrow signal alteration of the distal femoral diaphysis and metaphysis. Considerations include red marrow reconversion or
other marrow replacement process, less likely posttraumatic bone marrow edema.
X-rays at [facility] reportedly unremarkable.
Wound cultures:- E. coli and Serratia
02/23 s/p OR I+D, bursectomy. No joint involvement
OR cultures�E. coli, preliminary gram-negative bacilli although most likely Serratia Marcescens
Switched to Ertapenem = can give 1 dose today and then dc home on Bactrim DS 1 tab po bid x 14 more days.
Blood cultures negative so far
Essential hypertension
Continue losartan
Atrial tachycardia
Telemetry monitoring
Continue preadmission flecainide
Von Willebrand disease type II.
Essential thrombocytosis.
Patient reports no major bleeding with endoscopic procedures involving biopsy such as endoscopy and colonoscopy
Noted with platelet count of 891.
Appreciate hematology input-recommending DDAVP pre Surgery and tranexamic acid postsurgery for 5 days - dc on Tranexamic acid for 7 more doses to complete 15 doses as directed by hematology
H&H stable
DVT prophylaxis: SCD
CODE STATUS: Full code
More than 30 minutes spent in discharge including
Final examination of the patient
Summarizing hospital stay
Instructions for continuing care to all relevant caregivers
Preparation of discharge records, prescriptions, and referral forms
Total time spent (in minutes): 36
Anticipated Discharge: Today
Subjective/Interval History
-
Date of Service: February 26, 2025
No acute events
Objective Data
-
Labs:
Laboratory Results
02/26/25 02/26/25
05:24 05:25
WBC 12.6 H
Hgb 11.2 L
Hct 35.1 L
Plt Count 793 H
Sodium 142
Potassium 4.7
Chloride 108 H
Carbon Dioxide 29
BUN 11
Creatinine 0.9
Glucose 90
Calcium 8.6
Total Bilirubin 0.4
AST 18
ALT 16
Alkaline Phosphatase 41
Vital Signs:
Vital Signs
Temp Pulse Resp BP Pulse Ox
98.1 F 60 14 130/81 99
02/26/25 07:15 02/26/25 07:15 02/26/25 07:15 02/26/25 07:15 02/26/25 07:15
I&O
02/25/25 02/26/25 02/27/25
06:59 06:59 06:59
Intake Total 120 / 6 2690 / 2690 600 / 600
Balance 1206 / 1926 2690 / 2690 600 / 600
Review of Systems
-
History Source: Patient
All other systems: Not reviewed unless documented
Data Reviewed
-
Labs: Labs Reviewed by me
--- NOTE | 2025-02-26 11:19 | W.DS.TRANS ---
DC Summary - Conference Coordinator
-
Discharge Instructions:
Discharge Diagnosis/Procedures Right pre-patella septic bursitis
Diet Low Fat,Low Cholesterol
Bathing Restrictions After dressing removed
Blood Work cbc and cmp in 1 week with pcp
Wound Care ok to remove dressing 5 days post op. Please
keep wound covered and dry until follow up. Do
not soak or submerge incision. OK to shower once
dressings removed, but please pat dry and keep
covered until follow up.
WBAT RLE in [place]
Instructions:
Stand-Alone Forms:
Changes to Home Medications: Yes
Discharge Medications:
DC Medications w/original date entered in [employer]
albuterol sulfate 90 mcg/actuation aerosol inhaler 1 puff inhalation R Q4HPRN PRN sob 10/21/16
cholecalciferol (vitamin D3) 50 mcg (2,000 unit) tablet 2,000 units PO QPM 10/21/16
magnesium glycinate 120 mg (as glycinate) capsule 120 mg PO HS 10/21/16
vitamin B complex 1 tab PO QPM 10/21/16
ferrous sulfate 325 mg (65 mg iron) tablet 325 mg PO QPM 02/22/25
flecainide 50 mg tablet 50 mg PO HS 02/22/25
losartan 50 mg tablet 75 mg PO HS 02/22/25
sulfamethoxazole 800 mg-trimethoprim 160 mg tablet 1 tab PO BID 14 days #28 tabs 02/26/25
tranexamic acid 650 mg tablet 650 mg PO Q8H #7 tabs 02/26/25
Home Medication Changes
sulfamethoxazole 800 mg-trimethoprim 160 mg tablet 1 tab PO BID 14 days #28 tabs 02/26/25
tranexamic acid 650 mg tablet 650 mg PO Q8H #7 tabs 02/26/25
Pending Results: No
[2025-02-26] MEDS: INVANZ 60 MG IV (11:28)
[2025-02-26 13:09] VITALS: BP 152/82
[2025-03-01 16:04] LABS: Von Willebrands Factor Antigen 124 % (52-214)
== END 2025-02-26 13:24 | disposition home or self-care (01) | DRG 501 ==
LOC: 2 SOUTH 08:50
PROVIDERS: Emergency Medicine; Hospitalist; Internal Medicine; ADMITTING PHYSICIAN Internal Medicine; ATTENDING PHYSICIAN Internal Medicine; CONSULT PHYSICIAN Internal Medicine Infectious Disease; CONSULT PHYSICIAN Orthopaedic Surgery; FAMILY PHYSICIAN Nurse Practitioner Family; OTHER PHYSICIAN Internal Medicine Hematology & Oncology
PROC: 0J9N00Z Drainage of Right Lower Leg Subcutaneous Tissue and Fascia with Drainage Device, Open Approach (ICD-10-PCS; 2025-02-23)
PROC: 0MBN0ZZ Excision of Right Knee Bursa and Ligament, Open Approach (ICD-10-PCS; 2025-02-23)
DX: M71.161 Other infective bursitis, right knee (principal); D68.029 Von Willebrand disease, type 2, unspecified; L03.115 Cellulitis of right lower limb; I47.19 Other supraventricular tachycardia; D68.51 Activated protein C resistance; B96.20 Unspecified Escherichia coli [E. coli] as the cause of diseases classified elsewhere; B96.89 Other specified bacterial agents as the cause of diseases classified elsewhere; D75.839 Thrombocytosis, unspecified; I10 Essential (primary) hypertension; J45.909 Unspecified asthma, uncomplicated; S81.011A Laceration without foreign body, right knee, initial encounter; K21.9 Gastro-esophageal reflux disease without esophagitis; K44.9 Diaphragmatic hernia without obstruction or gangrene; W01.0XXA Fall on same level from slipping, tripping and stumbling without subsequent striking against object, initial encounter; D72.829 Elevated white blood cell count, unspecified; Z88.2 Allergy status to sulfonamides; Z79.899 Other long term (current) drug therapy
CPT/HCPCS: 73721; 76882; 80048; 80053; 82565; 83605; 84520; 85025; 85027; 85240; 85245; 85246; 85247; 87040; 87070; 87075; 87077; 87176; 87186; 87205; 93971; J1335; J2597

== ENCOUNTER 2025-07-26 16:52 | Emergency (ER) | payer OTHER, SELFPAY ==
[2025-07-26 17:12] VITALS: BP 155/89
[2025-07-26 17:53] LABS: Urine Character Clear (Clear)
[2025-07-26 18:04] LABS: Hematocrit 39.8 % (37.0-47.0); Hemoglobin 12.9 g/dL (12.0-16.0); Mean Corp Hgb Conc. 32.4 g/dL (33.0-37.0); Mean Corpuscular Volume 93.4 fL (81.0-99.0); Nucleated Red Blood Cells % 0.6 %; Platelet Count 784 10^3/uL (130-400); Red Cell Dist. Width 16.6 % (11.5-14.5)
[2025-07-26 18:10] LABS: ALT (SGPT) 26 U/L (0-35); AST (SGOT) 26 U/L (14-36); Albumin 4.7 g/dl (3.5-5.0); Alkaline Phosphatase 44 U/L (38-126); Blood Urea Nitrogen 19 mg/dl (7-17); Calcium 9.6 mg/dl (8.4-10.2); Carbon Dioxide 27 mmol/L (22-30); Chloride 100 mmol/L (98-107); Glucose 78 mg/dl (70-99); Lipase 126 U/L (23-300); Potassium 5.2 mmol/L (3.5-5.1); Sodium 134 mmol/L (135-145); Total Protein 7.1 g/dl (6.3-8.2); eGFR > 60.00
--- NOTE | 2025-07-26 21:42 | ED.GENMED ---
History of Present Illness
General
Chief Complaint: Abdominal Symptoms
Time Seen by Provider: 07/26/25 20:38
History of Present Illness
History of Present Illness:
65-year-old female with history of thrombocytosis, von Willebrand disease, GERD, hiatal hernia presenting to the emergency department for lower abdominal discomfort. Patient reports symptoms have been essentially ongoing for the past 2 weeks. Saw
her primary care doctor, was noted to have elevated WBC, concern for urinary tract infection. Patient was started on amoxicillin, however urine essentially was clear at that time. Symptoms have been persistent, and also is having intermittent
fevers. Denies dysuria, has had some urinary frequency. Denies any abdominal surgeries in the past. Notes nausea without vomiting. Reports decreased appetite denies chest pain, cough, difficulty breathing or additional acute medical complaints
Past History
Past History
ED Past Medical History: Other (Von Willebrand's disease, and thrombocytosis)
ED Past Surgical History: None
Social History
Tobacco: Non-smoker
Alcohol: Occasional
Drug: None
Personal: Single
Living: with family
Employment: Employed
Family History
Family History: Other (Atrial fibrillation)
Phy Exam
Physical Exam
Physical Exam:
General: Well-appearing, no clinical signs of dehydration, nontoxic and in no acute distress
HEENT: protecting airway
Neck: appears supple
CV: Normal heart rate, regular rhythm
Resp: No accessory muscle use, no increased work of breathing, lungs clear to auscultation bilaterally
Abd: Soft and non-distended, mild tenderness to the suprapubic abdomen, left lower quadrant, right lower quadrant. No rebound or guarding
Extremities: No deformities, no swelling
Neuro: alert, no focal neurologic deficit
: deferred
Rectal: deferred
Psych: Normal affect
Skin: Intact
Course
Orders/Labs/Results
Orders:
Orders
07/26/25 17:32
Complete Blood Count/With Diff Urgent
Comprehensive Metabolic Panel Urgent
Lipase Urgent
Urinalysis Reflex To Culture Urgent
Date Specimen was Collected: 07/26/25
Time Specimen was Collected: 17:15
07/26/25 21:14
CT Abd/pelvis W Iv Cont Urgent
Comment:
Reason For Exam: lower abdominal pain, leukocytosis, fever
Abnormal Lab Results
07/26/25
17:32
WBC 16.3 H 10^3/uL
(4.8-10.8)
MCHC 32.4 L g/dL
(33.0-37.0)
RDW 16.6 H %
(11.5-14.5)
Plt Count 784 H 10^3/uL
(130-400)
Abs Immat Gran (auto) 0.8 H 10^3/uL
(0-0.05)
Absolute Neuts (auto) 12.8 H 10^3/uL
(1.4-6.5)
Absolute Monos (auto) 1.0 H 10^3/uL
(0.1-0.6)
Immature Gran % 5.0 H %
(0-0.5)
Neutrophils % 78.3 H %
(42.2-75.2)
Lymphocytes % 9.9 L %
(20.5-51.1)
Sodium 134 L mmol/L
(135-145)
Potassium 5.2 H mmol/L
(3.5-5.1)
BUN 19 H mg/dl
(7-17)
07/26/25 17:32
07/26/25 17:32
Vital Signs
Initial and Last Documented VS:
Initial Vital Signs
Temp Pulse Resp BP Pulse Ox
98.6 F 55 16 155/89 98
07/26/25 17:12 07/26/25 17:12 07/26/25 17:12 07/26/25 17:12 07/26/25 17:12
Last Documented Vital Signs
Temp Pulse Resp BP Pulse Ox
98.6 F 55 16 155/89 98
07/26/25 17:12 07/26/25 17:12 07/26/25 17:12 07/26/25 17:12 07/26/25 21:45
MDM/Problems Addressed
MDM/Problems Addressed:
65-year-old female with history of von Willebrand's syndrome, thrombocytosis, GERD presenting for lower abdominal pain and subjective fever. Vital signs significant for mild hypertension.
On exam, patient resting comfortably, nontoxic with generalized tenderness to lower abdomen, right greater than left. Differential considerations include diverticulitis versus appendicitis versus cystitis. Labs obtained prior to my assessment
which do show leukocytosis. No signs of UTI. Plan for CT abdominal imaging for further assessment given duration of symptoms.
23:40 -CT without findings to explain patient's discomfort. Does note some mild enteritis and other chronic findings. Patient this time remains hemodynamically stable, has interval follow-up with PCP on Friday. Will provide copy of CT scan. Feel
stable for discharge, however strict return precautions communicated to patient verbalized understanding
*Pulse Oximetry
SaO2: 98
Oxygen Mode of Delivery: Room air
Patient hypoxic: no
*Critical Care Note
Total Time (30-74mins, 75-104mins- exclusive of procedures): Not Applicable
ED Attending Note
-
Portions of this chart may have been created with voice recognition software.� Occasional wrong word or��sound alike� substitutions may have occurred due to the inherent limitations of voice recognition software.
Discharge Plan
Departure
Prescriptions:
No Action
vitamin B complex 1 TAB tablet
1 tab PO QPM
albuterol sulfate 1 PUFF HFA aerosol inhaler
1 puff inhalation R Q4HPRN PRN (Reason: sob)
cholecalciferol (vitamin D3) 2,000 UNITS tablet
2,000 units PO QPM
magnesium glycinate 120 mg Capsule
120 mg PO HS
losartan 50 mg Tablet
75 mg PO HS
flecainide 50 mg Tablet
50 mg PO HS
ferrous sulfate 325 mg (65 mg iron) Tablet
325 mg PO QPM
sulfamethoxazole-trimethoprim 800-160 mg Tablet
1 tab PO BID 14 Days Qty: 28 0RF
tranexamic acid 650 mg tablet
650 mg PO Q8H Qty: 7 0RF
Referrals:
Germaine Salas CRNP [Family Provider, Family Practice]
Interventions
Interventions:
*General Assessment Last Done: 07/26/25 17:12
*Neglect/Abuse Screening Last Done: 07/26/25 17:12
*ED COVID-19 Vaccine History Last Done: 07/26/25 17:12
*ED Influenza Vaccine History Last Done: 07/26/25 17:12
[facility] Fall Risk Assessment Tool Last Done: 07/26/25 20:29
*Risk Screen - Suicide (C-SSRS) Last Done: 07/26/25 17:12
[facility] Assessment Last Done: 07/26/25 20:29
Discharge Date and Time
Print Language: SYRIAC
[2025-07-26 23:00] VITALS: BP 135/74
== END 2025-07-26 23:58 | disposition home or self-care (01) ==
LOC: EMR 16:52
PROVIDERS: Emergency Medicine; EMERGENCY PHYSICIAN Student in an Organized Health Care Education/Training Program; FAMILY PHYSICIAN Nurse Practitioner Family
DX: K52.9 Noninfective gastroenteritis and colitis, unspecified (principal); D68.00 Von Willebrand disease, unspecified; K21.9 Gastro-esophageal reflux disease without esophagitis; K44.9 Diaphragmatic hernia without obstruction or gangrene
CPT/HCPCS: 99284; 74177; 80053; 81003; 83690; 85025; Q9967